=== PATIENT | male | born 1945 | race Caucasian/White ===

== ENCOUNTER → 2018-01-24 22:48 | Outpatient (CLI) | payer MEDICARE, OTHER, SELFPAY ==
[2018-01-24 23:01] LABS: Absolute Lymphocyte Count 2.41 X10^3/ul (0.83-4.51); Absolute Neutrophil Count 3.2 X10^3/uL (2.0-7.7); Basophil# 0.05 X10^3/uL; Basophil% 0.8 % (0-1); Eosinophil# 0.24 X10^3/uL; Eosinophils% 3.7 % (0-5); Hematocrit 41.1 % (40-54); Hemoglobin 13.5 g/dl (13.0-16.5); Lymphocyte # 2.41 X10^3/ul (4.0); Lymphocyte % 36.8 % (19-41); Mean Corp Hgb Conc 32.8 g/gl (32-36); Mean Corpuscular Hgb 30.9 pg (27.0-32.0); Mean Corpuscular Volume 94.1 fL (80-94); Mean Platelet Vol. 9.7 fl (6.2-12.0); Monocyte# 0.65 X10^3/uL; Monocyte% 9.9 % (0-10); Neutrophil # 3.19 X10^3/uL (2.7-7.7); Neutrophil % 48.6 % (47-70); Platelet Count 272 K/mm3 (150-450); RBC Distribution Width CV 12.7 % (11.6-14.6); RBC Distribution Width SD 43.6 fl (35.1-43.9); Red Blood Count 4.37 M/mm3 (4.6-6.2); White Blood Count 6.6 K/mm3 (4.4-11.0)
[2018-01-24 23:05] LABS: POSITIVE COUNT NO; POSITIVE DIFFERENTIAL NO; POSITIVE MORPHOLOGY NO
[2018-01-24 23:17] LABS: ALB/GLOB Ratio 1.1 RATIO (0.9-2.4); AST(SGOT) 19 U/L (15-37); Alanine Aminotransfer ALT/SGPT 21 U/L (16-61); Albumin, Serum 3.6 g/dL (3.2-5.0); Alkaline Phosphatase 76 U/L (45-117); Anion Gap 7 (5-15); BUN 21 mg/dL (7-18); BUN/Creat Ratio 22.7 RATIO (10-20); Calcium,Total 8.3 mg/dL (8.5-10.1); Chloride 105 mmol/L (98-107); Creatinine, Serum 0.93 mg/dL (0.70-1.30); EST Glomerular Filtration Rate 85 mL/min (>60); Est Glom Filt Rate - Afr Amer 103 mL/min (>60); Globulin 3.2 g/dL (2.2-4.2); Glucose 90 mg/dL (74-106); Potassium 3.2 mmol/L (3.5-5.1); Protein, Total 6.8 g/dL (6.4-8.2); Sodium Level 141 mmol/L (136-145)
== END ==
PROVIDERS: Visit Provider Nurse Practitioner
DX: I10 Essential (primary) hypertension (principal); R35.0 Frequency of micturition; Z12.5 Encounter for screening for malignant neoplasm of prostate
CPT/HCPCS: 80053; 84153; 85025; G0103

== ENCOUNTER → 2018-11-07 18:00 | Outpatient (CLI) | payer MEDICARE, OTHER, SELFPAY ==
[2018-11-07 17:30] VITALS: BMI 25.6
[2018-11-08 01:11] LABS: Absolute Lymphocyte Count 2.46 X10^3/uL (0.83-4.51); Basophil# 0.07 X10^3/uL; Basophil% 1.1 % (0-1); Eosinophil# 0.22 X10^3/uL; Eosinophils% 3.5 % (0-5); Hematocrit 38.9 % (40-54); Hemoglobin 12.8 g/dL (13.0-16.5); Lymphocyte # 2.46 X10^3/ul (4.0); Lymphocyte % 38.7 % (19-41); Mean Corp Hgb Conc 32.9 g/dL (32-36); Mean Corpuscular Hgb 31.3 pg (27.0-32.0); Mean Corpuscular Volume 95.1 fL (80-94); Mean Platelet Vol. 10.2 fl (6.2-12.0); Monocyte% 9.4 % (0-10); NRBC Flagged by Analyzer 0 % (0-5); Neutrophil # 2.99 X10^3/uL (2.7-7.7); Neutrophil % 47.1 % (47-70); Platelet Count 284 K/mm3 (150-450); RBC Distribution Width CV 12.6 % (11.6-14.6); RBC Distribution Width SD 44.3 fl (35.1-43.9); Red Blood Count 4.09 M/mm3 (4.6-6.2); White Blood Count 6.4 K/mm3 (4.4-11.0)
[2018-11-08 01:31] LABS: ALB/GLOB Ratio 1.1 RATIO (0.9-2.4); AST(SGOT) 20 U/L (15-37); Alanine Aminotransfer ALT/SGPT 21 U/L (16-61); Albumin, Serum 3.5 g/dL (3.2-5.0); Alkaline Phosphatase 73 U/L (45-117); Anion Gap 4 (5-15); BUN 17 mg/dL (7-18); BUN/Creat Ratio 17.1 RATIO (10-20); Calcium,Total 8.4 mg/dL (8.5-10.1); Chloride 107 mmol/L (98-107); Cholesterol 145 mg/dL (200); EST Glomerular Filtration Rate 78 mL/min (>60); Est Glom Filt Rate - Afr Amer 94 mL/min (>60); Globulin 3.2 g/dL (2.2-4.2); Glucose 102 mg/dL (74-106); High Density Lipoprotein 55 mg/dL; Potassium 3.4 mmol/L (3.5-5.1); Protein, Total 6.7 g/dL (6.4-8.2); Sodium Level 139 mmol/L (136-145); Triglycerides 64 mg/dL; Very Low Density Lipoprotein 13 mg/dL (5-40)
== END ==
PROVIDERS: Referring Provider Nurse Practitioner; Visit Provider Nurse Practitioner
DX: I10 Essential (primary) hypertension (principal)
CPT/HCPCS: 80053; 80061; 85025

== ENCOUNTER → 2019-12-16 21:19 | Outpatient (CLI) | payer MEDICARE, OTHER, SELFPAY ==
[2019-12-16 17:46] VITALS: BMI 24.3
[2019-12-16 21:38] LABS: Absolute Lymphocyte Count 2.12 X10^3/uL (0.83-4.51); Absolute Neutrophil Count 3.3 X10^3/uL (2.0-7.7); Basophil# 0.06 X10^3/uL; Basophil% 0.9 % (0-1); Eosinophil# 0.21 X10^3/uL; Eosinophils% 3.3 % (0-5); Hematocrit 41.6 % (40-54); Hemoglobin 13.4 g/dL (13.0-16.5); Lymphocyte # 2.12 X10^3/ul (4.0); Lymphocyte % 33.3 % (19-41); Mean Corp Hgb Conc 32.2 g/dL (32-36); Mean Corpuscular Hgb 31.2 pg (27.0-32.0); Mean Platelet Vol. 9.8 fl (6.2-12.0); Monocyte# 0.63 X10^3/uL; Monocyte% 9.9 % (0-10); NRBC Flagged by Analyzer 0 % (0-5); Neutrophil # 3.34 X10^3/uL (2.7-7.7); Neutrophil % 52.4 % (47-70); Platelet Count 298 K/mm3 (150-450); RBC Distribution Width CV 12.2 % (11.6-14.6); RBC Distribution Width SD 43.7 fl (35.1-43.9); Red Blood Count 4.29 M/mm3 (4.6-6.2); White Blood Count 6.4 K/mm3 (4.4-11.0)
[2019-12-16 21:50] LABS: Vitamin B12 405 pg/mL (211-911)
[2019-12-16 21:55] LABS: ALB/GLOB Ratio 1.2 RATIO (0.9-2.4); AST(SGOT) 23 U/L (15-37); Alanine Aminotransfer ALT/SGPT 22 U/L (16-61); Albumin, Serum 3.6 g/dL (3.2-5.0); Alkaline Phosphatase 68 U/L (45-117); Anion Gap 5 (5-15); BUN 14 mg/dL (7-18); BUN/Creat Ratio 13.3 RATIO (10-20); Calcium,Total 8.4 mg/dL (8.5-10.1); Chloride 105 mmol/L (98-107); Cholesterol 153 mg/dL (200); Creatinine, Serum 1.05 mg/dL (0.70-1.30); EST Glomerular Filtration Rate 73 mL/min (>60); Est Glom Filt Rate - Afr Amer 88 mL/min (>60); Glucose 81 mg/dL (74-106); High Density Lipoprotein 48 mg/dL; PSA,Total - Annual Screen 3.62 ng/mL (0.00-4.00); Potassium 3.6 mmol/L (3.5-5.1); Protein, Total 6.6 g/dL (6.4-8.2); Sodium Level 140 mmol/L (136-145); Triglycerides 98 mg/dL; Very Low Density Lipoprotein 20 mg/dL (5-40)
== END ==
PROVIDERS: Referring Provider Nurse Practitioner; Visit Provider Nurse Practitioner
DX: I10 Essential (primary) hypertension (principal); D51.9 Vitamin B12 deficiency anemia, unspecified; L29.9 Pruritus, unspecified; R97.20 Elevated prostate specific antigen [PSA]; Z12.5 Encounter for screening for malignant neoplasm of prostate
CPT/HCPCS: 80053; 80061; 82607; 84153; 85025; G0103

== ENCOUNTER → 2021-11-15 | Outpatient (CLI) | payer MEDICARE, OTHER, SELFPAY ==
[2021-11-15 22:24] LABS: Absolute Lymphocyte Count 2.25 X10^3/uL (0.83-4.51); Absolute Neutrophil Count 5.4 X10^3/uL (2.0-7.7); Basophil# 0.05 X10^3/uL; Basophil% 0.6 % (0-1); Eosinophil# 0.08 X10^3/uL; Eosinophils% 0.9 % (0-5); Hematocrit 39.9 % (40-54); Hemoglobin 13.3 g/dL (13.0-16.5); Lymphocyte # 2.25 X10^3/ul (0.83-4.51); Lymphocyte % 26.1 % (19-41); Mean Corp Hgb Conc 33.3 g/dL (32-36); Mean Corpuscular Hgb 30.9 pg (27.0-32.0); Mean Corpuscular Volume 92.6 fL (80-94); Mean Platelet Vol. 9.8 fl (6.2-12.0); Monocyte# 0.81 X10^3/uL; Monocyte% 9.4 % (0-10); NRBC Flagged by Analyzer 0 % (0-5); Neutrophil # 5.42 X10^3/uL (2.7-7.7); Neutrophil % 62.8 % (47-70); Platelet Count 297 K/mm3 (150-450); RBC Distribution Width CV 12.3 % (11.6-14.6); RBC Distribution Width SD 41.8 fl (35.1-43.9); Red Blood Count 4.31 M/mm3 (4.6-6.2); White Blood Count 8.6 K/mm3 (4.4-11.0)
[2021-11-15 22:39] LABS: ALB/GLOB Ratio 1.2 RATIO (0.9-2.4); AST(SGOT) 22 U/L (15-37); Alanine Aminotransfer ALT/SGPT 22 U/L (16-61); Albumin, Serum 3.6 g/dL (3.2-5.0); Alkaline Phosphatase 70 U/L (45-117); Anion Gap 9 (5-15); BUN 17 mg/dL (7-18); BUN/Creat Ratio 15.7 RATIO (10-20); CRP, High Sensitivity Cardiac 0.89 mg/L; Calcium,Total 8.6 mg/dL (8.5-10.1); Chloride 97 mmol/L (98-107); Creatinine, Serum 1.08 mg/dL (0.70-1.30); EST Glomerular Filtration Rate 70 mL/min (>60); Est Glom Filt Rate - Afr Amer 85 mL/min (>60); Glucose 87 mg/dL (74-106); PSA,Total - Annual Screen 7.84 ng/mL (0.00-4.00); Potassium 3.6 mmol/L (3.5-5.1); Protein, Total 6.6 g/dL (6.4-8.2); Sodium Level 134 mmol/L (136-145)
[2021-11-16 11:53] LABS: Troponin-I HS 7 pg/mL (3.0-78.0)
== END | disposition home or self-care (01) ==
PROVIDERS: Visit Provider Nurse Practitioner
DX: R07.89 Other chest pain (principal); I10 Essential (primary) hypertension; R35.0 Frequency of micturition; K30 Functional dyspepsia; Z12.5 Encounter for screening for malignant neoplasm of prostate
CPT/HCPCS: 80053; 84153; 84484; 85025; 86141; G0103

== ENCOUNTER → 2021-12-08 | Outpatient (CLI) | payer MEDICARE, OTHER, SELFPAY ==
--- NOTE | 2021-12-08 11:00 | PET_ITS ---
PROCEDURE: WHOLE BODY PET/CT (PMSA) SCAN, MID SKULL TO MID THIGH REASON FOR EXAM: Increasing PSA following radical prostatectomy COMPARISON EXAMINATION: None. TECHNIQUE: Following the intravenous administration of 9.28 mCi of F-18 pylarify, multiplanar imaging acquisitions of the neck, chest, abdomen/pelvis to the mid thigh, obtained at 1 hour post radiopharmaceutical administration. Interpretation is with co-registeration of similar anatomic distribution of CT. Findings: Normal and physiologic distribution of radioisotope identified in the expected intensity of the hepatic and splenic parenchyma, urinary tract and gastrointestinal structures. There is gross anatomic distribution of the intracranial contents. Normal salivary gland activity. INDEX LESION SIZE SUV INTERPRETATION: 1. The left hemipelvis, rounded nodule on the left side of the pelvis on image 72 of series 202 measures 1.8 x 1.3 cm with soft tissue reticular density extending posteriorly. There is associated abnormal isotope activity (SUV 6.9). In the lower right hemipelvis, there is a focal soft tissue nodule measuring 1.7 x 1.4 cm also with isotope activity (SUV 7.8). CT portion of the exam: The lungs are normal. There is no demonstrated pleural abnormality. Normal heart and pericardium. There are calcifications of the coronary arteries. Normal mediastinum. Normal hilar regions. Normal unenhanced pulmonary arteries. Normal aorta arch and descending thoracic aorta. There are several hypodense lesions scattered throughout the liver measuring up to 2.5 cm, none of which demonstrate abnormal isotope activity. Normal gallbladder and extrahepatic biliary system. There are multiple benign calcified granulomata of the spleen. Normal pancreas. Normal bilateral adrenal glands. Normal right kidney. Normal left kidney. Normal visualized stomach. Normal small intestine. Normal colon. The appendix is visualized and appears normal. Normal abdominal aorta. Normal inferior vena cava. Normal urinary bladder. Prostatectomy. Small left inguinal hernia. No destructive bony process. Fusion hardware of the lumbar spine. PET/PET/CT Tumor Base -Thigh Subs IMPRESSION: 1. ABNORMAL EXAMINATION. Bilateral pelvic nodule/adenopathy with abnormal isotope activity meeting criteria for viable neoplasm/prostatic metastasis. 2. Multiple hypodense hepatic masses WITHOUT abnormal PMSA activity, suspicious for HEPATIC METASTASIS, unknown etiology. Recommend hepatic protocol MRI and/or tissue sampling/biopsy. 3. Chronic changes, as detailed above. Electronically Signed: Rajnedra Garnica MD ([place]) at 15:31 EDT Reading Location ID and State: [id number] , Service support ,
== END | disposition home or self-care (01) ==
LOC: ONC 10:51
PROVIDERS: PCP Nurse Practitioner; Referring Provider Urology; Visit Provider Urology
DX: C61 Malignant neoplasm of prostate (principal)
CPT/HCPCS: 78815; A9595

== ENCOUNTER → 2021-12-10 | Outpatient (CLI) | payer MEDICARE, OTHER, SELFPAY ==
--- NOTE | 2021-12-10 08:16 | NM_ITS ---
CLINICAL: 76-year-old male with history of prostate carcinoma. WHOLE BODY 99m Tc MDP RADIONUCLIDE BONE SCINTIGRAPHY COMPARISON: Whole body bone scintigraphy report 11/08/2010 FINDINGS: Following the intravenous administration of 24.7 mCi of 99m Tc MDP, whole body bone images reveal: 1. Increased radiopharmaceutical concentration is defined in the midlower cervical spine posteriorly on the left, the first-third lumbar vertebra posteriorly on the left and right, the left and right posterior sacrum, the acromioclavicular and sternoclavicular compartments of both shoulders, the visualized left and right wrist, the knees bilaterally. 2. The remaining skeletal structures are scintigraphically unremarkable with normal-appearing renal images and urinary bladder activity identified. NM/Bone Scan Whole Body IMPRESSION: 1. The increase in radiotracer concentration defined in the cervical and lumbar spine, the sacrum, the bilateral shoulders, the visualized left and right wrist and knees bilaterally is commensurate with degenerative arthrosis. 2. Compared to the previous whole body bone scintigraphy report dated 11/08/2010, there is no current scintigraphic evidence of diffuse axial skeletal metastatic disease. Electronically Signed: Ranjeet Champagne, at 10:09 EDT ,
== END | disposition home or self-care (01) ==
LOC: NM 08:14
PROVIDERS: PCP Nurse Practitioner; Visit Provider Urology
DX: C61 Malignant neoplasm of prostate (principal)
CPT/HCPCS: 78306; A9503

== ENCOUNTER → 2021-12-23 | Outpatient (CLI) | payer MEDICARE, OTHER, SELFPAY ==
--- NOTE | 2021-12-23 16:20 | MRI_ITS ---
STUDY: MRI ABDOMEN WITH AND WITHOUT CONTRAST REASON FOR EXAM: Male, 76 years old. MALIGNANT NEOPLASM OF PROSTATE. -- SPECIFICALLY ORDERED BY DR. HANNA ATTENTION TO LIVER TECHNIQUE: Standardized fat and water weighted pulse sequences were obtained in all 3 orthogonal planes post contrast administration. IV 13mL CLARISCAN was administered for the contrast portion of the examination. COMPARISON: None. FINDINGS: The visualized lung bases are unremarkable. The visualized portions of the heart are within normal limits. Innumerable T1 hypointense/T2 hyperintense lesions throughout the liver, for example a 3.2 cm mass in the right hepatic lobe. The lesions demonstrate delayed central enhancement. Normal gallbladder and extrahepatic biliary system. Normal spleen. Normal pancreas. Normal bilateral adrenal glands. Normal right kidney. Normal left kidney. Normal visualized stomach. Normal small intestine. Normal colon. There is diffuse atherosclerotic calcification of the abdominal aorta with elongation and tortuosity. Normal inferior vena cava. Normal retroperitoneum. Normal abdominal wall. There are diffuse degenerative changes of the visualized lumbar spine. MRI/MRI Abd WITH and W/O Contrast IMPRESSION: Diffuse hepatic metastases from unknown primary, possibly prostate. Consider ultrasound guided percutaneous biopsy. Electronically Signed: Tomy Vaca MD at 17:39 EDT ,
[2021-12-23 16:25] LABS: CREATININE FINGERSTICK < 0.9 mg/dL (0.70-1.30); EGFR FINGERSTICK > 60.0000 mL/min (>60)
== END | disposition home or self-care (01) ==
LOC: MRI 15:41
PROVIDERS: PCP Nurse Practitioner; Visit Provider Urology
DX: C61 Malignant neoplasm of prostate (principal)
CPT/HCPCS: 74183; A9575

== ENCOUNTER 2022-01-04 08:32 | Outpatient (CLI) | payer MEDICARE, OTHER, SELFPAY ==
[2022-01-04] VITALS (11 sets, daily range): BP systolic 113–169; BP diastolic 61–100; PULSE 53–75; RESP 14–21; TEMP 36.9; O2SAT 94–98; BMI 21.2
[2022-01-04 08:48] LABS: Platelet Count 288 K/mm3 (150-450)
[2022-01-04 09:06] LABS: International Normalized Ratio 1.1; Prothrombin Time (Protime)PT. 14.4 SECONDS (11.7-14.9)
[2022-01-04 09:07] LABS: Partial Thromboplast Time 28.1 Seconds (24.1-36.2)
[2022-01-04] MEDS: Midazolam 2 MG/2 ML Syringe IV (10:00)
--- NOTE | 2022-01-04 10:00 | ASPIGT_PTH ---
PATIENT: NELLIE ASHLEY LOC: CT U#:[id number] AGE/SX: 76/M ROOM: RE01/04/[address]: Dr. Rai Lopez MD : 1945 BED: DIS: 01/04/2022 SPEC #: [id number] RECD: 01/04/22 10:30 STATUS: JORDAN REDanny #: [id number] LOUISE: 01/04/22 10:[address]: Rai Lopez DEPT: SURGICAL PATHOLOGY RECD BY: Bharti Soto ENTERED: 01/04/22 12:05 SP TYPE: ASP RAD OTHR DR: Prema Banks, DIRECTOR MATERNAL CHILD-C Tissues: Liver, NOS Procedures: FNA Specimen Adequacy Special Stain Group II Surgery Specimen Level V Imprint (control) HEADER OPERATION: CT-guided liver biopsy PRE-OP DIAGNOSIS: Malignant neoplasm of prostate TISSUE SUBMITTED: Liver 18-gauge x7 MICROSCOPIC DIAGNOSIS Liver, CT-guided core biopsy: Liver parenchymal tissue, negative for malignancy. See comment. SHAZIA:sarah 01/05/2022 COMMENT The specimen is evaluated at the time of biopsy by Dr. Hernandez. Immediate Evaluation: Set 1 - Negative for malignant cells (2 imprints). Set 2 - Negative for malignant cells (4 imprints). Correlation with clinical, radiologic findings and appropriate follow up are necessary. As per EMR, the patient has history of prostate cancer diagnosis in 2010, status post prostatectomy. Case has been reviewed in consultation with Dr. Nick who concurs with the above diagnosis. IDC:AM MICROSCOPIC DESCRIPTION Slides are reviewed. GROSS DESCRIPTION Received in fixative is one container labeled with the patient's name and designated liver. The specimen consists of multiple irregular fragments of [place] soft tissue that in aggregate measure 1.5 x 0.5 x 0.1 cm. The entire specimen is submitted in one cassette. Six touch imprints are prepared at the time of core biopsy. / SHAIZA:sarah 01/04/2022 TC:4 CPT: 50166, 47723, 60982
--- NOTE | 2022-01-04 10:00 | CT_ITS ---
PROCEDURE: CT DIRECTED CORE LIVER BIOPSY INDICATION: Male, 76 years old. PROSTATE MALIGNANT NEOPLASM PHYSICIAN: Dr. VARGAS Jordan CONSENT: Written informed consent was obtained having explained the risks, benefits and alternatives in detail with the patient who accepted the risks and agreed to proceed. Laboratory review and clinical assessment was performed. CONSCIOUS SEDATION PROTOCOL: The Drugs used were: 2 mg Versed, IV., and 50 mcg Fentanyl, IV. The sedation time was: 23 minutes. Conscious sedation was started at 10:00 AM and terminated at 10:23 AM. The conscious sedation protocol was independently monitored. RADIATION DOSAGE (If Supplied By Facility): CTDIvol = ( 15 ) mGy, DLP = ( 251.56 ) mGycm Individualized dose optimization techniques were used for this CT. TECHNIQUE: Using CT image guidance with image documentation, a suitable location in the left lobe of the liver was identified. Using an anterior approach, puncture of the liver was uneventful with an 18-gauge core needle system. 7, 18-gauge core samples were obtained, and submitted in formalin to the pathologist for further assessment. Followup CT scan revealed no distinct sequelae. CT/Biopsy/Inj or Needle Placement IMPRESSION: 1. CT directed core needle biopsy of the liver, using CT image guidance with image documentation as described. 2. Conscious Sedation protocol utilized with independent monitoring. Electronically Signed: Chintan Franks MD at 10:46 EDT ,
[2022-01-04] MEDS: fentaNYL 100 MCG/2 ML Ampul IV (10:03)
[2022-01-04] MEDS: Lidocaine 2% (20 ml mdv) 20 ML Vial INFILT (10:12)
== END 2022-01-04 23:59 | disposition home or self-care (01) ==
LOC: CT 08:35
PROVIDERS: PCP Nurse Practitioner; Referring Provider Urology; Visit Provider Urology
DX: C61 Malignant neoplasm of prostate (principal); C79.89 Secondary malignant neoplasm of other specified sites
CPT/HCPCS: 47000; 36415; 77012; 85049; 85610; 85730; 88172; 88305; 88307; 88313; 99156; J7050; A4216

== ENCOUNTER → 2022-01-14 | Outpatient (CLI) | payer MEDICARE, OTHER, SELFPAY ==
[2022-01-14] VITALS (10 sets, daily range): BP systolic 109–165; BP diastolic 55–96; PULSE 55–90; RESP 11–21; TEMP 36.6; O2SAT 94–99; BMI 22.0
--- NOTE | 2022-01-14 | IMM_PTH ---
PATIENT: NELLIE ASHLEY LOC: CT U#:[id number] AGE/SX: 76/M ROOM: RE01/14/[address]: Dr. Rai Lopez MD : 1945 BED: DIS: 01/14/2022 SPEC #: [id number] RECD: 01/18/22 09:24 STATUS: JORDAN REQ #: [id number] LOUISE: 01/14/22 00:[address]: Rai Lopez DEPT: IMMUNOHISTOCHEMISTRY RECD BY: Montse Staples ENTERED: 01/18/22 09:26 SP TYPE: IMMUNO OTHR DR: Prema Banks, JEWELRY SETTER-C Tissues: Liver, NOS Procedures: Synapto (add) RCC (add) NAPSIN A (add) CD56 (add) CEA (add) CHROMO (add) CK20 (add) CK5-6 (add) CK7 (add) CK8 (add) KI-67 (add) TTF1 (add) Vimentin (add) 34BE12 (add) Pankeratin (initial) P40 (add) PSAP (add) NSE (add) S-100 (add) PHYSICIAN & INSTITUTION [place] [id number] SPECIMEN INFORMATION: Tissue Source: Liver mass Clinical Info: Liver mass Specimen Number: [id number] CPT code: 48942, 96329 x18 METHODOLOGY: Deparaffinized sections of prefer/formalin-fixed tissue or PAP/DQ stained slides are incubated with monoclonal/polyclonal antibodies/oligonucleotide probes. Localization is made via biotin free immunoperoxidase method. Appropriate controls are performed and reacted as expected. Results on target cell population are indicated in the following table: RESULTS: ANTIBODY / CLONE RESULT AE1-3 (AE1/AE3/PCK26) negative CK7 (OV-TL12/30) negative CK8 (52orukK09) positive CK20 (KS20.8) positive, focal Vimentin (V9) negative 34BE12 (34BE12) negative CD56 (123C3.D5) positive Chromo (LK2H10) positive Synapto (polyclonal) positive NSE Neuron Specific Enolase positive TTF-1 (8G7G3/1) positive Napsin A (Rabbit Polyclonal) positive, dim CK5-6 (D5 & 1684) negative P40 (BC28) negative Ki-67 (30-9) positive, >95% PSAP (PASE/4LJ) negative RCC (PN-15) negative S-100 (4C4.9) negative CEA (11-7/TF-3HB-1) positive These tests were developed and their performance characteristics determined by [facility]. They may not have been cleared or approved by the U.S. Food and Drug Administration. The FDA has determined that such clearance or approval is not necessary. The above immunohistochemical/dualISH markers are ordered and reviewed by the Pathologist. INTERPRETATION: Liver mass, CT-guided core biopsy: Consistent with metastatic small cell carcinoma. See comment. AM:sarah 01/19/2022 Comment: The IHC profile favors a lung primary.
--- NOTE | 2022-01-14 08:57 | CT_ITS ---
PROCEDURE: CT DIRECTED CORE LIVER BIOPSY INDICATION: Male, 76 years old. HX OF PROSTATE CA PHYSICIAN: Dr. VARGAS Jordan CONSENT: Written informed consent was obtained having explained the risks, benefits and alternatives in detail with the patient who accepted the risks and agreed to proceed. Laboratory review and clinical assessment was performed. CONSCIOUS SEDATION PROTOCOL: The Drugs used were: 2 mg Versed, IV., and 75 mcg Fentanyl, IV. The sedation time was: 20 minutes. Conscious sedation was started at 10:08 AM and terminated at 10:28 AM. The conscious sedation protocol was independently monitored. RADIATION DOSAGE (If Supplied By Facility): CTDIvol = ( 15 ) mGy, DLP = ( 252.9 ) mGycm Individualized dose optimization techniques were used for this CT. TECHNIQUE: Using CT image guidance with image documentation, a suitable location in the right lobe of the liver was identified. Using an anterior approach, puncture of the liver was uneventful with an 18-gauge core needle system. 4, 18-gauge core samples were obtained, and submitted in formalin to the pathologist for further assessment. Followup CT scan revealed no distinct sequelae. CT/Biopsy/Inj or Needle Placement IMPRESSION: 1. CT directed core needle biopsy of the liver, using CT image guidance with image documentation as described. 2. Conscious Sedation protocol utilized with independent monitoring. Electronically Signed: Chintan Franks MD at 10:51 EDT ,
[2022-01-14] MEDS: Midazolam 2 MG/2 ML Syringe IV (10:08)
[2022-01-14] MEDS: fentaNYL 100 MCG/2 ML Ampul IV ×2 (10:10→10:17)
[2022-01-14] MEDS: Lidocaine 2% (20 ml mdv) 20 ML Vial (10:20)
--- NOTE | 2022-01-14 10:30 | ASPIGT_PTH ---
PATIENT: NELLIE ASHLEY LOC: CT U#:[id number] AGE/SX: 76/M ROOM: RE01/14/[address]: Dr. Rai Lopez MD : 1945 BED: DIS: 01/14/2022 SPEC #: [id number] RECD: 01/14/22 11:05 STATUS: JORDAN REDanny #: [id number] LOUISE: 01/14/22 10:[address]: Rai Lopez DEPT: SURGICAL PATHOLOGY RECD BY: Bharti Soto ENTERED: 01/14/22 11:07 SP TYPE: ASP RAD OTHR DR: Prema Banks, MULTIPLE TUBE WINDING MACHINE OPERATOR-C Tissues: Liver, NOS Procedures: FNA Specimen Adequacy Special Stain Group II Surgery Specimen Level V Imprint (control) HEADER OPERATION: Liver biopsy PRE-OP DIAGNOSIS: Liver mass TISSUE SUBMITTED: Liver 18-gauge x4 cores MICROSCOPIC DIAGNOSIS Liver mass, CT-guided core biopsy: Positive for malignant cells consistent with 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 See comment. AM:sarah 01/17/2022 COMMENT The specimen is evaluated at the time of biopsy by Dr. Nick. Immediate Evaluation = Positive for malignant cells consistent with carcinoma. Immunohistochemistry ([id number]) supports the above diagnosis. MICROSCOPIC DESCRIPTION Slides are reviewed. GROSS DESCRIPTION Received is one container labeled with the patient's name and not further designated. The specimen consists of multiple cores of light [place] soft tissue that in aggregate measure 1.8 x 0.5 x <0.1 cm. The specimen is totally submitted in one cassette. / AM:sarah 01/14/2022 TC:0 CPT: 25370, 06115
== END | disposition home or self-care (01) ==
LOC: CT 08:56
PROVIDERS: PCP Nurse Practitioner; Referring Provider Urology; Visit Provider Urology
DX: R16.0 Hepatomegaly, not elsewhere classified (principal); C79.89 Secondary malignant neoplasm of other specified sites; C61 Malignant neoplasm of prostate; R97.21 Rising PSA following treatment for malignant neoplasm of prostate
CPT/HCPCS: 47000; 77012; 88172; 88305; 88307; 88313; 88341; 88342; 99156; J7050; Q9967; A4216

== ENCOUNTER → 2022-01-27 | Outpatient (CLI) | payer MEDICARE, OTHER, SELFPAY ==
--- NOTE | 2022-01-27 07:32 | CT_ITS ---
STUDY: CT CHEST T ABDOMEN WITH CONTRAST REASON FOR EXAM: Male, 76 years old. METS SCLC UNKNOWN PRIMARY SUSPECT LUNG IV CONTRAST RADIATION DOSAGE (If Supplied By Facility): CTDIvol = ( 12.19 ) mGy, DLP = ( 734.10 ) mGycm TECHNIQUE: Transaxial imaging was performed following intravenous administration of IV 100mL Isovue-300. Multiplanar coronal and sagittal images were reformatted. Individualized dose optimization techniques were used for this CT. COMPARISON: No relevant priors. FINDINGS: CHEST Small benign-appearing bilateral axillary lymph nodes. The lungs are normal. There is no demonstrated pleural abnormality. There are calcifications of the coronary arteries. Normal mediastinum. Normal hilar regions. Normal unenhanced pulmonary arteries. There is atherosclerotic calcification of the aortic arch. Subchondral sclerosis at the T12-L1 level. ABDOMEN Multiple hypodense nodules scattered throughout both lobes of the liver. This is in keeping with diffuse metastatic deposits. Hepatomegaly. Small amount of the perihepatic fluid along its inferior margin. Normal gallbladder and extrahepatic biliary system. There are multiple benign calcified granulomata of the spleen. Normal pancreas. Normal bilateral adrenal glands. Normal right kidney. Normal left kidney. Large amount of residual food particles seen in the stomach. Normal small intestine. Normal colon. The appendix is visualized and appears normal. There is scattered atherosclerotic calcification of the abdominal aorta, without a demonstrated aneurysm. Normal inferior vena cava. Normal retroperitoneum. There is a small umbilical hernia containing fat. There are diffuse degenerative changes of the visualized lumbar spine. Prior laminectomy and fusion at the L3-L4 and L4-L5 levels. Subchondral sclerosis at the T12-L1 and L1-L2 levels. CT/CT Chest AND Abd W/ Contrast IMPRESSION: Hepatomegaly and diffuse hepatic metastasis. Small amount of fluid is seen in the perihepatic space along its inferior margin. Electronically Signed: Chintan Franks MD at 9:27 EST ,
== END | disposition home or self-care (01) ==
LOC: CT 07:32
PROVIDERS: PCP Nurse Practitioner; Visit Provider Internal Medicine Hematology & Oncology
DX: C34.90 Malignant neoplasm of unspecified part of unspecified bronchus or lung (principal)
CPT/HCPCS: 71260; 74160; Q9967

== ENCOUNTER 2022-02-01 05:50 | Day surgery (SDC) | payer MEDICARE, OTHER, SELFPAY ==
[2022-02-01] VITALS (7 sets, daily range): BP systolic 124–188; BP diastolic 81–91; PULSE 52–58; RESP 16–19; TEMP 36.3–36.6; O2SAT 97–99; BMI 22.9
[2022-02-01] MEDS: Lactated Ringers 1,000 ML 15 ML IV (06:35)
--- NOTE | 2022-02-01 07:12 | PCM.HP.BLA ---
History and Physical Date of Admission: 02/01/22 Date of Service:? 01/26/22 MR#: [id number] Acct: [id number] Name:? NELLIE NATHAN Rep #: [id number] : 1945 ? ? Provider: Dr. Mihai Grady MD Age/Sex:? 76/M ? ? Location: [facility] Status: Signed Intake Vital Signs ? 01/26/2209:19 Height 5 ft 8 in Weight: 151 lb BMI 22.9 BP 159/82 H Blood Pressure Location Rt brachial Position Sitting Respiration 17 Pulse 65 Pulse Source Monitor Temp 97.5 F L Temp Source Temporal Pulse Oximetry (%) 96 Oxygen Delivery Method room air Intake Visit Reasons:?PORT PLACEMENT Chief Complaint: Port Placement Agronomy Location Manager Required: No Is patient in pain?: No Allergies naproxen [From Aleve] Adverse Reaction (Verified 01/26/22 09:21) Itching Medications meclizine 12.5 mg tablet 12.5 mg PO BID-TID PRN dizziness #60 tabs 07/19/21 [Rx Confirmed 01/26/22] lisinopril 20 mg-hydrochlorothiazide 12.5 mg tablet 1 tab PO DAILY #90 tabs 11/15/21 [Rx Confirmed 01/26/22] zolpidem 10 mg tablet 10 mg PO .every night #30 tabs 11/25/21 [Rx Confirmed 01/26/22] aspirin 81 mg tablet,delayed release (Adult Aspirin Regimen) 81 mg PO DAILY 12/29/21 [History Confirmed 01/26/22] pantoprazole 40 mg tablet,delayed release (Protonix) 40 mg PO BID #60 tabs 01/03/22 [Rx Confirmed 01/26/22] cholecalciferol (vitamin D3) 10 mcg (400 unit) tablet (Vitamin D3) 10 mcg PO DAILY 01/24/22 [History Confirmed 01/26/22] calcium carbonate 600 mg calcium (1,500 mg) tablet (Calcium) 800 mg PO DAILY 01/26/22 [History Confirmed 01/26/22] PFSH Medical History? Abnormal EKG Anxiety Erectile dysfunction Hypertension Insomnia Micturition painful Nocturia Poor urinary stream Prostate cancer Right bundle branch block Small cell lung cancer Stress incontinence TIA (transient ischemic attack) Surgical History? H/O back surgery H/O knee surgery History of prostatectomy Hx of hernia repair Family History? Mother?? ,? at age 82 from? a stroke CVA (cerebral vascular accident)Father CancerSister CancerOther Hypertension Social History? Smoking Status:? Former smoker Tobacco: How many years used:? 15 alcohol intake:? current alcohol intake frequency: a few times a month details:? social drinker substance use type:? does not use caffeine:? Yes (2/day) HPI HPI HPI: Patient is a 76-year-old male who presents for consideration of port placement.? He is referred from Dr. De Souza.? Patient was diagnosed with small cell lung cancer on 01/14/2022 after core needle biopsy of his liver for a suspicious lesion noted on PET imaging.? He had been under surveillance for a diagnosis of prostate cancer treated with prostatectomy 10 years earlier and was found to have a rising PSA with pelvic lymphadenopathy.? PET imaging was performed on 12/08/2021 again found liver metastasis of unknown origin leading to the biopsy at the end of December.? They have met with oncology and plans are to begin chemotherapy for palliative purposes, but a date has not been set.? Denies any symptoms of cough or hemoptysis.? He reports a smoking history of approximately 10 years where he smoked 1-1/2 to 2 packs/day.? He reports that he stopped this habit 40 to 50 years ago.? He denies any secondhand exposure. Patient has no prior history of central line placement.? Patient has no pacemaker or intracardiac defibrillator.? Patient has no renal dysfunction and are not on hemodialysis.? He additionally has no history of staph infections. Mr. Nathan is not currently prescribed blood thinners. Patient does have a history of abnormal EKG which was reported as a right bundle branch block.? He notes recent evaluation by Dr. Sutton, a corporate events director in the [place], who performed a battery of stress test and he was assured that there was no signs of ischemia. ROS General General: Yes fatigue; No weight change, appetite, colon cancer, breast cancer or weakness HEENT HEENT: No difficulty swallowing, eye injury, eye surgery, swollen glands or hoarseness Endo Endocrine: No thyroid disease, diabetes mellitus, thyroid cancer, Hair loss, heat intolerance or cold intolerance Skin Skin: No rash or changing moles Musc Musculoskeletal: Yes back problems; No arthritis, rheumatoid arthritis, gout or joint pain Cardio Cardiovascular: Yes high blood pressure; No murmur, pacemaker, heart disease, atrial fibrillation, heart attack, heart stent, palpitations, shortness of breat with exertion or chest pain Psych Psychiatric: No depression, anxiety or hearing voices Resp Respiratory: No shortness of breath, No sleep apnea, No cough, No COPD, No asthma, No emphysema and No wheezing Gastro Gastrointestinal: No abdominal pain, Yes nausea or vomiting, No diarrhea, No constipation, No blood in stool, Yes acid reflux, Yes hemorrhoids, No ulcers, No gallbladder problem and No black,tarry stools Daryn Hematologic: No blood thinners, No blood disorders, No bleeding, No anemia and No blood clots Additional Details: Baby ASA Neuro Neurologic: No system reviewed and no additional complaints, except as documented, No as per HPI, No abnormal gait, No abnormal hearing, No abnormal movements, No abnormal speech, No behavioral changes, No burning sensations, No confusion, No convulsions, No disequilibrium, No dizziness, No localized weakness, No frequent falls, No headache(s), No lack of coordination, No loss of vision, No memory loss, No numbness, No other visual disturbances, No radicular pain, No restless legs, No sensory deficit, No syncope, No tingling, No tremor(s), No weakness and No other Exam Const General: cooperative and anxious Orientation: alert, awake and oriented x3 Chest Other: Patient is thin with minimal soft tissue coverage over his thoracic cavity.? There are no signs of infections or skin breaks. Resp Effort & Inspection: normal respiratory effort and no cough Auscultation: no rales, no rhonchi and no wheezes Cardio Rate: regular rate Rhythm: regular rhythm Assessment and Plan Assessment and Plan (1) Small cell lung cancer: ?Status:?Acute ?Comment: This is a 76-year-old male who is diagnosed with metastatic small cell lung cancer that was found incidentally during a work-up for recurrent prostate cancer.? He is referred for evaluation of possible port placement to begin palliative chemotherapy.? A formal date for this therapy initiation has not yet been set.? He has no prior history of central line placement or renal dysfunction.? Therefore I would like to plan for a Port-A-Cath placement under ultrasound guidance next week to not delay these plans for chemotherapy.? The procedure was described in detail as well as recommendations for trying to prevent a central line associated bacterial infection.? Patient and his were appreciative of this information and are eager to be underway with the procedure. ?Plan: Ultrasound-guided right versus left Port-A-Cath placement under local MAC to be scheduled for next week Coding Level of Care Code Off vis,new,level 4 Diagnoses Small cell lung cancer? C34.90 01/26/22 1412 <Electronically signed by Mihai Grady MD> Date Mihai Grady MD
[2022-02-01] MEDS: Cefazolin 2 GM in 0.9% Normal Saline 100 ML IV (07:32)
[2022-02-01] MEDS: Bupivacaine 0.25% 30 ML Vial (08:00)
[2022-02-01] MEDS: Lidocaine 1% (30 ml sdv) 30 ML Vial (08:00)
--- NOTE | 2022-02-01 08:04 | RAD_ITS ---
STUDY: X-RAY CHEST REASON FOR EXAM: Male, 76 years old. Port -- pacu TECHNIQUE: Single AP portable view of the chest. COMPARISON: None. FINDINGS: A right-sided portacatheter is in place with the tip at the junction of the superior vena cava and right atrium. The lungs are clear and expanded. There is no demonstrated pleural abnormality. Normal size heart. Normal mediastinum and misha. Normal visualized pulmonary arteries. There is atherosclerotic calcification of the aortic arch with tortuosity. There are diffuse degenerative changes of the visualized thoracic spine. Normal visualized ribs, clavicles, and shoulders. There is no demonstrated abnormality of the visualized soft tissue structures of the upper abdomen. RAD/CXR for Line Placement IMPRESSION: The tip of the right-sided uli catheter is at the junction of the superior vena cava and right atrium. Electronically Signed: Chintan Franks MD at 8:46 EST ,
--- NOTE | 2022-02-01 08:05 | PCM.OPRPT ---
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 Placement of right IJ Port-A-Cath, 2. Use of fluoroscopy 3. Use of fluoroscopy. Surgeon: Claire Vinson Type of Anesthesia: Local MAC Anesthesiologist: Espinoza Chino Special Medications: Ancef 2 g IV x1 Estimated Blood Loss (mL): < 10 cc Description of Procedure: After informed consent was given, the patient was brought to the operating room and placed in the supine position. Appropriate time out protocol was followed. Patient was then given IV conscious sedation for anesthesia. The patient's right upper chest and neck were then prepped with a surgical skin preparation and sterile surgical drapes were placed. After proper landmarks were ascertained, the skin at the upper right chest area was then infiltrated with 1:1 mixture of 1% lidocaine and 0.25% marcaine. A needle trocar was then inserted into the right internal jugular vein with ultrasound guidance-multiple vessels were viewed with u/s and the right IJ was chosen-- and there was good aspiration of venous blood. A wire was then threaded into the needle trocar and this was visualized under fluoroscopy to ensure that the wire was in the superior vena cava. Once this was done, then the needle trocar was removed. A small skin tara was made with an 11 blade knife at the wire entrance site. The dilator with the introducer sheath attached was then placed over the wire into the right internal jugular vein via the Seldinger technique and this was visualized under fluoroscopy. The dilator and sheath were in proper position as visualized by fluoroscopy. A subcutaneous pocket was then created caudad to the catheter insertion site. A transverse skin incision was made after the skin and subcutaneous tissues were infiltrated with local anesthetic. Blunt dissection was then used to create a space large enough for placement of the subcutaneous port. The catheter was then tunneled into the subcutaneous pocket. The wire and dilator were then removed. The catheter was then threaded into the introducer sheath and was positioned with its tip at the junction of the superior vena cava and the right atrium as visualized under fluoroscopy. The excess catheter was transected. The catheter was then attached to the subcutaneous port using manufacturers guidelines. The catheter was flushed with a heparin saline mixture prior to placement. Hemostasis was carefully controlled with electrocautery. The port was sutured to the subcutaneous fascia using 2-0 Vicryl suture at two sites. The port was then placed in the subcutaneous pocket. The incision were reapproximated with interrupted subdermal 3-0 vicryl sutures. The skin was reapproximated with 3-0 nylon suture in a interrupted fashion. Steristrips were used for reinforcement of the skin closure at IJ insertion site and a sterile opsite dressings were applied. The patient tolerated the procedure well. Grafts/Implants Used: [employer] PowerPort isp M.R.I. 6Fr Lot [id number] [id number] Complications none
--- NOTE | 2022-02-01 08:08 | EX.PCM.DISCH ---
Discharge Instructions Diet Discharge Diet: Light diet - advance as tolerated Activity Discharge Activity: May Not Drive (while taking narcotic pain medications.) May shower in (days): 1 Lifting Restrictions: no lifting >20 lbs x 2 wks, no strenuous exercise for 4 wks Dressing / Incision Call your doctor if your incision/area has: Continuous Slow Oozing, Sudden Increased Bleeding, Increased Pain/ Swelling, Increased Redness, Foul Smelling Discharge and Swelling at the incision site Call your doctor if you observe: Fever of 101 or Higher Remove Dressing in: 2 days Cleanse incision/area with: Soap & Water Additional Dressing/Incision Instructions:: Steri-Strips will fall off in 7 to 10 days, if they do not fall off okay to remove after 10 days. Follow Up Care Please Follow Up With: Claire Vinson MD When: Call the office for a follow-up appointment 2 weeks; after 5 PM and on the weekends call [phone] with any concerns. Test Results: Test results from this visit will be discussed in further detail at your follow-up appointment, if applicable. Discharge Plan Admission Attending Provider: Claire Vinson Primary Care Provider: Prema Banks NP Discharge Orders/Prescriptions Prescriptions: New oxycodone-acetaminophen 5-325 mg tablet 1 tab PO Q6H PRN (Reason: pain) 3 Days Qty: 5 0RF Continued aspirin [Adult Aspirin Regimen] 81 mg tablet,delayed release (DR/EC) 81 mg PO DAILY pantoprazole [Protonix] 40 mg tablet,delayed release (DR/EC) 40 mg PO BID Qty: 60 3RF Rx Instructions: take two times a day for eight weeks then start once a day. cholecalciferol (vitamin D3) [Vitamin D3] 10 mcg (400 unit) tablet 10 mcg PO DAILY calcium carbonate [Calcium 600] 600 mg calcium (1,500 mg) tablet 800 mg PO DAILY ondansetron 8 mg tablet,disintegrating 8 mg PO Q8H PRN (Reason: nausea and vomiting) Qty: 30 2RF lidocaine-prilocaine 2.5-2.5 % cream 1 applic topical ONCE PRN (Reason: port access) 30 Days Qty: 30 2RF meclizine 12.5 mg tablet 12.5 mg PO BID-TID PRN (Reason: dizziness) Qty: 60 12RF lisinopril-hydrochlorothiazide 20-12.5 mg tablet 1 tab PO DAILY Qty: 90 3RF zolpidem 10 mg tablet 10 mg PO .every night Qty: 30 5RF Referrals / Follow Up: Prema Banks LAY BROTHER, [facility]OTHER-C [Primary Care Provider] - Disposition Disposition (needs filled in before D/C Order can be placed): Home, Self Care
== END 2022-02-01 09:11 | disposition home or self-care (01) ==
LOC: SDC 05:50 → AC 05:51
PROVIDERS: PCP Nurse Practitioner; Referring Provider Surgery; Visit Provider Surgery
PROC: (CPT 36561; principal; 2022-02-01 07:15)
DX: Z45.2 Encounter for adjustment and management of vascular access device (principal); C34.90 Malignant neoplasm of unspecified part of unspecified bronchus or lung; R59.0 Localized enlarged lymph nodes; Z87.891 Personal history of nicotine dependence
CPT/HCPCS: 36561; 00532; 71045; 77001; J7120

== ENCOUNTER → 2022-02-02 | Outpatient (CLI) | payer MEDICARE, OTHER, SELFPAY ==
--- NOTE | 2022-02-02 13:46 | MRI_ITS ---
EXAM: MR HEAD WITHOUT AND WITH INTRAVENOUS CONTRAST CLINICAL INDICATION: METS SCLC UNK PRIMARY SUSPECT LUNG TECHNIQUE: Multiplanar and multisequence MR images of the brain were obtained without and with intravenous contrast. This report was created using Smart [employer] report [employer] technology. CONTRAST: IV Yes YES COMPARISON: None. FINDINGS: BRAIN AND EXTRA-AXIAL SPACES: No intracranial mass, mass effect, or midline shift. No mass or enhancing lesion. No hemorrhage, hydrocephalus, or acute territorial infarct. Areas of T2 signal hyperintensity in the white matter are consistent with moderate microvascular ischemia. Mild cerebral atrophy with widening of the extra-axial spaces and ventricular dilation. Basal cisterns are unremarkable. SELLA: Pituitary gland is normal in height. AUDITORY SYSTEM: Unremarkable. BONES/JOINTS: Unremarkable. SINUSES: Unremarkable as visualized. Clear. MASTOID AIR CELLS: Unremarkable as visualized. Clear. ORBITS: Unremarkable as visualized. VASCULATURE: Normal flow voids in the major intracranial circulation. MRI/Brain W/WO Contrast IMPRESSION: Chronic microvascular ischemic changes. No mass or enhancing lesion. Electronically Signed: Jalyn Cruz MD at 20:48 EST Reading Location ID and State: [id number] / Tel , Service support ,
== END | disposition home or self-care (01) ==
LOC: MRI 13:46
PROVIDERS: PCP Nurse Practitioner; Referring Provider Internal Medicine Hematology & Oncology; Visit Provider Internal Medicine Hematology & Oncology
DX: C34.90 Malignant neoplasm of unspecified part of unspecified bronchus or lung (principal)
CPT/HCPCS: 70553; A9575

== ENCOUNTER → 2022-04-04 | Outpatient (CLI) | payer MEDICARE, OTHER, SELFPAY ==
--- NOTE | 2022-04-04 07:43 | CT_ITS ---
STUDY: CT CHEST, ABDOMEN T PELVIS WITH CONTRAST REASON FOR EXAM: Male, 76 years old. 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 Individualized dose optimization techniques were used for this CT. COMPARISON: Comparison is made with prior study 02/26/2022. FINDINGS: CHEST A right-sided Port-A-Cath is seen with the tip in the superior vena cava. Stable small benign-appearing bilateral axillary lymph nodes. The lungs are normal. There is no demonstrated pleural abnormality. There are calcifications of the coronary arteries. Normal mediastinum. Normal hilar regions. Normal unenhanced pulmonary arteries. There is atherosclerotic calcification of the aortic arch. There are multi-level degenerative changes of the thoracic spine. Calcified splenic granulomas. Multiple hypodense nodules in the liver. ABDOMEN 1 significant, there are multiple hypodense nodules scattered throughout the liver. There has been a marked improvement as compared to prior study. Most of these nodules are presently predominantly cystic in nature. The liver is not enlarged at this time. Normal gallbladder and extrahepatic biliary system. There are multiple benign calcified granulomata of the spleen. Normal pancreas. Normal bilateral adrenal glands. Normal right kidney. Normal left kidney. Normal visualized stomach. Normal small intestine. Normal colon. The appendix is visualized and appears normal. There is scattered atherosclerotic calcification of the abdominal aorta, without a demonstrated aneurysm. Normal inferior vena cava. Normal retroperitoneum. Normal abdominal wall. There are diffuse degenerative changes of the visualized lumbar spine. Prior laminectomy and fusion at the L3-L4 and L4-L5 levels. Subchondral sclerosis at the T12-L1 and L1-L2 levels. PELVIS Normal urinary bladder. The patient is status post prostatectomy. Normal visualized small intestine. Normal visualized colon. There is no pelvic fluid. There is no pelvic lymphadenopathy or mass lesion. Normal visualized pelvic arteries. There is a left inguinal hernia containing fat. CT/CT Chest, Abd, Pel w/Contrast IMPRESSION: Interval decrease in size and number of the previously seen perihepatic metastatic deposits. Changes in the liver are predominantly cystic at this time. The remainder of the examination is essentially unchanged. Electronically Signed: Chintan Franks MD at 9:20 EST ,
[2022-04-04] MEDS: 0.9% Saline Lock 10 ML Syringe IV (08:04)
== END | disposition home or self-care (01) ==
LOC: CT 07:42
PROVIDERS: PCP Nurse Practitioner; Visit Provider Internal Medicine Hematology & Oncology
DX: C61 Malignant neoplasm of prostate (principal); C34.90 Malignant neoplasm of unspecified part of unspecified bronchus or lung; I25.10 Atherosclerotic heart disease of native coronary artery without angina pectoris; K40.90 Unilateral inguinal hernia, without obstruction or gangrene, not specified as recurrent; Q44.6 Cystic disease of liver
CPT/HCPCS: 71260; 74177; Q9967; A4216

== ENCOUNTER → 2022-05-17 | Outpatient (CLI) | payer MEDICARE, OTHER, SELFPAY ==
[2022-05-17 22:08] LABS: Cholesterol 208 mg/dL (200); High Density Lipoprotein 81 mg/dL; Triglycerides 127 mg/dL; Very Low Density Lipoprotein 25 mg/dL (5-40)
== END | disposition home or self-care (01) ==
PROVIDERS: PCP Nurse Practitioner; Visit Provider Nurse Practitioner
DX: R07.89 Other chest pain (principal)
CPT/HCPCS: 80061

== ENCOUNTER → 2022-06-06 | Outpatient (CLI) | payer MEDICARE, OTHER, SELFPAY ==
--- NOTE | 2022-06-06 07:55 | CT_ITS ---
STUDY: CT CHEST T ABDOMEN WITH CONTRAST REASON FOR EXAM: Male, 76 years old. F/U SCLC IV CONTRAST ONLY RADIATION DOSAGE (If Supplied By Facility): CTDIvol = ( 12.29 ) mGy, DLP = ( 954.29 ) mGycm TECHNIQUE: Transaxial imaging was performed following intravenous administration of IV 100mL Isovue-300. Multiplanar coronal and sagittal images were reformatted. Individualized dose optimization techniques were used for this CT. COMPARISON: Comparison is made with prior study dated April 04, 2022. FINDINGS: CHEST A right-sided portacatheter is seen with the tip in the superior vena cava. The lungs are normal. There is no demonstrated pleural abnormality. There are calcifications of the coronary arteries. Normal mediastinum. Normal hilar regions. Normal unenhanced pulmonary arteries. There is atherosclerotic calcification of the aortic arch. There are multi-level degenerative changes of the thoracic spine. Multiple calcified splenic granulomas. Stable hypodense nodules scattered throughout both lobes of the liver. These are not typical cyst and most likely represent metastatic deposits. ABDOMEN Stable multiple hypodense nodules scattered throughout both lobes of the liver. These are predominantly cystic in nature. Normal gallbladder and extrahepatic biliary system. There are multiple benign calcified granulomata of the spleen. Normal pancreas. Normal bilateral adrenal glands. Normal right kidney. Normal left kidney. Normal visualized stomach. Normal small intestine. There are multiple colonic diverticula consistent with diverticulosis. The appendix is visualized and appears normal. Normal abdominal aorta. Normal inferior vena cava. Normal retroperitoneum. Small bilateral inguinal hernias containing fat. There are diffuse degenerative changes of the visualized lumbar spine. Prior fusion at the L3-L4 and L4-L5 levels. CT/CT Chest AND Abd W/ Contrast IMPRESSION: Stable examination. Electronically Signed: Chintan Franks MD at 14:56 EDT ,
== END | disposition home or self-care (01) ==
LOC: CT 07:54
PROVIDERS: PCP Nurse Practitioner; Visit Provider Internal Medicine Hematology & Oncology
DX: C34.90 Malignant neoplasm of unspecified part of unspecified bronchus or lung (principal)
CPT/HCPCS: 71260; 74160; Q9967

== ENCOUNTER 2022-10-06 14:54 | Outpatient (RCR) | payer MEDICARE, OTHER, SELFPAY ==
--- NOTE | 2022-10-07 10:16 | HP.OTEVAL_ITS ---
Patient's Visit Information Visit Information Visit Information: NELLIE ASHLEY is a 77 year old M, referred to Occupational Therapy by Dr. Yash De Souza MD, with a diagnosis of Malignant neoplasm brain, liver, lung prostate. Date of Evaluation: 10/06/22 Occupational Therapist: MARIBEL Mitchell/Virgil, CHT Subjective Subjective: This 77 year old male was seen for OT eval with dx of Malignant neoplasm of unspecified part of unspecified bronchus or lung, prostate, liver and intrahepatic bile duct, Secondary malignant neoplasm of brain Pt arrives with and have concerns with pts safe functional mobility and would like to know what more she can do for pt to allow him to continue with performing ADLs as he is able. states they came for wheeled walker training as she has noticed pts slower gait and increase need of her support with walking. Order is for walker training. ADLs Comments: lives with in one story duplex with 1 stair with rail. has nephew who lives next door- who will watch pt while is shopping tub shower combination - has shower chair with long handle shower head- is using at this time assist with bathing dressing does all cooking/cleaning states she is with pt most of the time. States while in [place] he took off driving in the middle of the night. states this scared her and now pt has had driving license taken. ROM ROM Comments: pt demo BUE ROM WNL Strength Shoulder: right 4/5 left 4/5 Elbow: right 4/5 left 4/5 Architectural Administrative Assistant: right 40# left 40# Strength Comments: pt demo with generalized weakness Quick DASH-Disab of Arm,Shoulder& Hand Quick DASH Score: 47.7250 Goals Goal:: Family will demo understanding of recommended home modification for increase safety and functional mobility by end of 1st session. Rehabilitation General Assessment: pt demo with generalized weakness limiting pts ind. with safe functional mobility. Based on 's report on home set-up: therapist advised extended shower chair, personal alarm and supervision when pt is performing ADLs. demo understanding and agreed to recommendations. OT did call and ask for Wheeled Walker order to be sent to [facility]. Pt will see Physical therapy for walker training. Rehabilitation Potential: Questionable Anticipated Interventions Anticipated Interventions: Education re assistive Equipment, Education re Diagnosis and Caregiver Training Other Interventions: home modification ad. eq. for ADLs and safety Visit Plan TEXT: Thank you for the opportunity to evaluate your patient. For Medicare and Medicare HMO plans, please review the plan of care and approve it. It will need to be FAXED BACK to us at [phone] for Medicare purposes. Please let me know if there are questions or concerns regarding this plan of care. Physician Signature: Date:
== END 2022-10-06 19:00 | disposition home or self-care (01) ==
LOC: OT 14:54
PROVIDERS: PCP Nurse Practitioner; Referring Provider Internal Medicine Hematology & Oncology; Visit Provider Internal Medicine Hematology & Oncology
DX: C61 Malignant neoplasm of prostate (principal); C78.7 Secondary malignant neoplasm of liver and intrahepatic bile duct; C79.31 Secondary malignant neoplasm of brain; C34.90 Malignant neoplasm of unspecified part of unspecified bronchus or lung
CPT/HCPCS: 97166

== ENCOUNTER → 2022-10-13 | Outpatient (CLI) | payer MEDICARE, OTHER, SELFPAY ==
--- NOTE | 2022-10-13 06:54 | CT_ITS ---
EXAM: CT CHEST, ABDOMEN AND PELVIS WITH INTRAVENOUS CONTRAST CLINICAL INDICATION: F/U METS SCLC IV CONTRAST ONLY TECHNIQUE: Helically acquired images were obtained of the chest, abdomen and pelvis with intravenous contrast. This CT exam was performed using one or more of the following dose reduction techniques: automated exposure control, adjustment of the mA and/or kV according to patient size, and/or use of iterative reconstruction technique. CONTRAST: IV 100mL Isovue-300 COMPARISON: CT Chest Abdomen Pelvis dated 06/06/2022 FINDINGS: CHEST: LUNGS AND PLEURAL SPACES: Normal. No mass. No consolidation or edema. No pleural effusion or thickening. No pneumothorax. HEART: Normal. Heart size is normal. No pericardial effusion. MEDIASTINUM: Normal. No mediastinal or hilar adenopathy. Esophagus is unremarkable. No hiatal hernia. THYROID: Normal. No thyroid nodules or calcification. ABDOMEN: LIVER: Has been marked progression of the diffuse metastatic liver disease. Innumerable space-occupying lesions within the liver measuring up to 3.6 cm in maximum diameter. PANCREAS: Normal. No focal cystic or solid mass. SPLEEN: Multiple splenic granulomata again seen. ADRENALS: Normal. No nodules. KIDNEYS AND URETERS: Normal. Normal renal size and position. No hydronephrosis. STOMACH AND BOWEL: Normal. No bowel obstruction or ileus. No focal inflammatory change. PELVIS: APPENDIX: Appendix is visualized and normal in appearance. BLADDER: Normal. REPRODUCTIVE: Surgical changes of prostatectomy. CHEST, ABDOMEN and PELVIS: INTRAPERITONEAL SPACE: Normal. No ascites or other fluid collection. No free air. BONES/JOINTS: Postoperative and degenerative changes of the spine are stable. SOFT TISSUES: Normal. No discrete abdominal or pelvic wall hernia. VASCULATURE: Normal. Aorta is non-dilated. No aortic dissection. No obvious central pulmonary embolism although this study was not performed with the pulmonary embolism protocol. LYMPH NODES: Normal. No enlarged lymph nodes. TUBES, LINES AND DEVICES: Right IJ infusion catheter extends to the cavoatrial junction. CT/CT Chest, Abd, Pel w/Contrast IMPRESSION: Significant progression of the diffuse metastatic liver disease. No other interval change. Electronically Signed: Pipe Seals MD at 16:39 EDT Reading Location ID and State: [facility] / [place] Tel , Service support ,
[2022-10-13] MEDS: 0.9 % NaCl (Sterile) Posiflush 10 mL IV (07:15)
== END | disposition home or self-care (01) ==
LOC: CT 06:54
PROVIDERS: PCP Nurse Practitioner; Referring Provider Internal Medicine Hematology & Oncology; Visit Provider Internal Medicine Hematology & Oncology
DX: C34.90 Malignant neoplasm of unspecified part of unspecified bronchus or lung (principal)
CPT/HCPCS: 71260; 74177; Q9967; A4216

== ENCOUNTER → 2022-10-21 | Outpatient (CLI) | payer MEDICARE, OTHER, SELFPAY ==
--- NOTE | 2022-10-21 14:54 | MRI_ITS ---
STUDY: MRI BRAIN WITH AND WITHOUT CONTRAST REASON FOR EXAM: Male, 77 years old. INCREASED HEADACHES -- BRAIN METS S/P RT SEPTEMBER 2022 TECHNIQUE: Standardized multiplanar fat and water weighted pulse sequences were obtained. IV 14ml Clariscan was administered for the contrast portion of the examination. COMPARISON: September 13, 2022 FINDINGS: Mild atrophy and nonspecific moderate periventricular white matter disease most likely due to chronic small vessel ischemia possibly exaggerated by chemotherapeutic or radiation changes . There are numerous subcentimeter enhancing nodules within the cerebral hemispheres bilaterally. Several of the nodules demonstrate slightly increased signal intensity on T1 possibly representing subacute hemorrhage. Normal bilateral basal ganglia. Tiny enhancing nodule in left thalamus. There is no extra-axial fluid accumulation. Normal flow voids within the major intracranial circulation suggesting patency by spin echo criteria. Normal venous enhancement. Normal sella turcica, pituitary gland, infundibular stalk, optic chiasm and hypothalamus. Normal tectal plate and pineal gland. Normal midbrain, and medulla. Tiny enhancing nodule in the left gene there are rim-enhancing nodules within the cerebellar hemispheres bilaterally. Normal basal cisterns. Normal bilateral temporal bones. Normal bilateral internal auditory canals. No demonstrated orbital abnormality, within the constraints of a routine brain study. Normal visualized paranasal sinuses. Normal calvarium and skull base. Normal visualized soft tissue structures. Normal visualized upper cervical spine. The number and size of the nodules have decreased significantly since previous exam MRI/Brain W/WO Contrast IMPRESSION: Atrophy and periventricular white matter ischemic changes.. Persistent multiple bilateral cerebral, cerebellar and brainstem metastasis which have decreased in both size and number significantly since previous exam. Some of the nodules demonstrate increased signal intensity on unenhanced T1 which may be consistent with tiny foci of subacute hemorrhage Electronically Signed: Onel Nunn MD at 17:46 EDT ,
[2022-10-21] MEDS: 0.9 % NaCl (Sterile) Posiflush 10 mL IV (16:09)
== END | disposition home or self-care (01) ==
LOC: MRI 14:26
PROVIDERS: PCP Nurse Practitioner; Referring Provider Internal Medicine Hematology & Oncology; Visit Provider Internal Medicine Hematology & Oncology
DX: R51.9 Headache, unspecified (principal)
CPT/HCPCS: 70553; A9575; A4216

== ENCOUNTER 2022-11-15 14:02 | Inpatient (IN) | payer MEDICARE, OTHER, SELFPAY ==
[2022-11-15 14:07] VITALS: BP 155/106; PULSE 93; RESP 18; TEMP 36.3; O2SAT 100; BMI 23.4
--- NOTE | 2022-11-15 14:17 | MRI_ITS ---
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 Patient has change in eye sight in bilateral eyes. Compare to previous MRI dated 10/21/22. TECHNIQUE: Standardized multiplanar fat and water weighted pulse sequences were obtained. 14 ml of IV Clariscan was administered for the contrast portion of the examination. COMPARISON: MRI of the brain dated September 13, 2022 and MRI brain dated October 21, 2022. FINDINGS: There is mild cerebral atrophy with widening of the extra-axial spaces and ventricular dilatation. There are multiple white matter hyperintensities, distributed throughout the deep white matter tracts of the cerebral hemispheres, consistent with moderate chronic white matter ischemic changes. There is no evidence for recent intracranial ischemia or other cause of cytotoxic edema on diffusion weighted imaging (DWI). Normal T2* images of the brain without demonstrated susceptibility artifact. There is no demonstrated hemosiderin stain. Normal bilateral basal ganglia. Normal thalami. There is no extra-axial fluid accumulation. Normal flow voids within the major intracranial circulation suggesting patency by spin echo criteria. Normal venous enhancement. There are numerous enhancing nodules scattered throughout the cerebrum and cerebellum several which appear larger than they were on the previous MRI. There are also enhancing nodules within the gene. These lesions have associated abnormal T2 hyperintensity. Normal sella turcica, pituitary gland, infundibular stalk, optic chiasm and hypothalamus. Normal tectal plate and pineal gland. There are chronic white matter ischemic changes of the gene. The midbrain and medulla are otherwise normal. There are multiple enhancing nodules throughout the cerebellum. There are large basal cisterns. Normal bilateral temporal bones. Normal bilateral internal auditory canals. No demonstrated orbital abnormality, within the constraints of a routine brain study. Normal visualized paranasal sinuses. Normal calvarium and skull base. Normal visualized soft tissue structures. Normal visualized upper cervical spine. MRI/Brain W/WO Contrast IMPRESSION: Continued enlargement of numerous scattered metastases throughout the cerebrum and cerebellum. Electronically Signed: Alexa Smart MD at 16:55 EDT ,
--- NOTE | 2022-11-15 14:25 | EX.ED.DYSGE1 ---
HPI <Dr. Akbar Ace MD - Last Filed: 11/15/22 14:55> History of Present Illness Chief Complaint: Neuro S/Sx Detail of Chief Complaint: Vision field and trouble with balance Informant: patient and spouse/S.O. 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 He had multiple by lateral lesions involving cerebellum and cerebrum that improved markedly on most recent MRI, October 21. He presents now because of worsening visual symptoms. Patient is describing a right homonymous hemianopsia. He has had trouble with speech but had trouble with speech since May. He had trouble with balance since May as well. He denies loss of conscious. He denies nausea or vomiting. He denies headache. Presently he is not on Decadron. Review of prior records indicates patient also has metastasis to the liver. Patient denies fever, chills night sweats. He denies ringing's ears or decreased hearing. He denies cardiac respiratory symptoms. Prior similar symptoms: Yes Recent Illness/Hospitalization: No PFSH <Dr. 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 Stress incontinence TIA (transient ischemic attack) Wears glasses Home Medications aspirin 81 mg tablet,delayed release (Adult Aspirin Regimen) 81 mg PO DAILY 12/29/21 [History Last Taken 01/12/22] cholecalciferol (vitamin D3) 10 mcg (400 unit) tablet (Vitamin D3) 10 mcg PO DAILY 01/24/22 [History Last Taken Unknown] calcium carbonate 600 mg calcium (1,500 mg) tablet (Calcium) 800 mg PO DAILY 01/26/22 [History Last Taken Unknown] ondansetron 8 mg disintegrating tablet 8 mg PO Q8H PRN nausea and vomiting #30 tabs 01/27/22 [Rx Last Taken Unknown] dexamethasone 4 mg tablet 4 mg PO DAILY 10/05/22 [History Last Taken Unknown] omeprazole 20 mg capsule,delayed release 20 mg PO DAILY 10/05/22 [History Last Taken Unknown] Disabled Parking Placard #1 ea 10/06/22 [Rx Last Taken Unknown] Wheeled walker #1 ea 10/06/22 [Rx Last Taken Unknown] lisinopril 20 mg-hydrochlorothiazide 12.5 mg tablet 1 tab PO DAILY blood pressure #90 tabs 10/07/22 [Rx Last Taken Unknown] zolpidem 10 mg tablet 10 mg PO .every night #30 tabs 10/07/22 [Rx Last Taken Unknown] dexamethasone 4 mg tablet 8 mg (2 x 4 mg) PO .COMPLEX #4 tabs 10/27/22 [Rx Last Taken Unknown] pantoprazole 40 mg tablet,delayed release (Protonix) 40 mg PO DAILY PPI 11/15/22 [History Last Taken Unknown] Allergy/AdvReac Type Severity Reaction Status Date / Time naproxen [From Aleve] Allergy Rash Verified 11/15/22 14:07 Family History Mother , at age 82 from a stroke CVA (cerebral vascular accident) Father Cancer Sister Cancer Other Hypertension Surgical History H/O back surgery H/O knee surgery History of colonoscopy History of prostatectomy Hx of hernia repair Social History Smoking Status: Former smoker Tobacco: How many years used: 15 alcohol intake: current alcohol intake frequency: a few times a month details: social drinker substance use type: does not use caffeine: Yes (2/day) ROS <Dr. Akbar Ace MD - Last Filed: 11/15/22 14:55> ROS ED Constitutional Constitutional ED: Denies chills, fever(s), subjective, sweats or weight loss Eyes Eyes: Reports change in vision bilateral; Denies blurry vision or diplopia ENT ENT ED: Denies ear pain, rhinorrhea or sore throat Cardiovascular Cardiovascular: Denies chest pain or palpitations Respiratory/Chest Respiratory/Chest: Denies cough, dyspnea or dyspnea on exertion Gastrointestinal Gastrointestinal: Denies abdominal pain, diarrhea or vomiting Genitourinary Genitourinary ED: Denies dysuria, hematuria or urinary frequency Musculoskeletal Musculoskeletal: Denies arthralgias, back pain, myalgias or neck pain Integumentary Denies abscess or Abrasions Neurologic Neurologic: Reports weakness; Denies headache(s) or paresthesias Psychiatric Psychiatric: Denies anxiety Hematologic/Lymphatic Hematologic/Lymphatic: Reports systems reviewed and no addt'l complaints, except as documented EXAM <Dr. Akbar Ace MD - Last Filed: 11/15/22 14:55> Physical Exam Const Vital Signs: 11/15/22 14:07 11/15/22 14:17 11/15/22 19:00 Temperature 97.4 F L Temperature Source Temporal Pulse Rate 93 76 Respiratory Rate 18 14 Respiratory Effort Normal Respiratory Pattern Normal Blood Pressure 155/106 H 134/79 H Blood Pressure Mean 122 97 Pulse Ox 100 98 Oxygen Delivery Method Room Air Room Air 11/15/22 19:35 Temperature 97.4 F L Temperature Source Temporal Pulse Rate 76 Respiratory Rate 14 Respiratory Effort Respiratory Pattern Blood Pressure 134/79 H Blood Pressure Mean 97 Pulse Ox 98 Oxygen Delivery Method Room Air Positive well developed General Appearance ED: well developed, NAD and pallor; Negative for cyanotic or diaphoretic HEENT Reports moist mucous membranes HEENT Narrative: Head is atraumatic normocephalic. Ears are normal. TMs are normal. Nares patent. Uvula is midline. There is no deviation tongue or protrusion. Eyes PERRL and EOMs intact bilaterally General Eye ED: Negative for scleral icterus Neck no lymphadenopathy, supple and no JVD Chest Wall inspection of chest normal and palpation of chest normal Resp normal respiratory effort and clear to auscultation bilaterally GI normal to inspection, nondistended, normoactive bowel sounds, non-tender, non-distended and no masses; Negative for hepatosplenomegaly Back/Spine no CVA tenderness Thoracic Spine / Upper Back: Negative for thoracic spinal tenderness Lumbar Spine / Lower Back: Negative for lumbar spinal tenderness Extremity normal to inspection General Extremety ED: Negative for tenderness Neuro oriented x3, CN's II-XII intact bilaterally and no sensory deficits noted Neuro Narrative: Patient has an incomplete right homonymous hemianopsia. Sensorium / Orientation: alert Motor Exam: strength 5/5 throughout Psych mental status grossly normal Skin no rashes or lesions noted, no wounds and No skin turgor normal General Skin Exam: pallor; Negative for jaundice <Dr. Ronnie Shah DO - Last Filed: 11/15/22 21:00> Physical Exam Const Vital Signs: 11/15/22 14:07 11/15/22 14:17 11/15/22 19:00 Temperature 97.4 F L Temperature Source Temporal Pulse Rate 93 76 Respiratory Rate 18 14 Respiratory Effort Normal Respiratory Pattern Normal Blood Pressure 155/106 H 134/79 H Blood Pressure Mean 122 97 Pulse Ox 100 98 Oxygen Delivery Method Room Air Room Air 11/15/22 19:35 Temperature 97.4 F L Temperature Source Temporal Pulse Rate 76 Respiratory Rate 14 Respiratory Effort Respiratory Pattern Blood Pressure 134/79 H Blood Pressure Mean 97 Pulse Ox 98 Oxygen Delivery Method Room Air MDM <Dr. Akbar Ace MD - Last Filed: 11/15/22 14:55> MDM MDM Narrative Medical decision making narrative: With history of prostate cancer metastasis to the liver and brain and now patient having new neurologic symptoms to obtain MRI of the brain with and without contrast. Blood work was obtained to assess renal function, CBC, H&H and platelet count. Prior records were reviewed. Prior outpatient records were reviewed. History & Record Review Additional record(s) reviewed:: Prior outpatient record, Prior ED visit and Prior labs Lab Data Attestation: I reviewed the patient's lab results. Lab results narrative: CBC reveals a macrocytic anemia. This is a chronic condition. Basic metabolic panel is unremarkable with a glucose of 120 and a normal CO2 anion gap and a GFR of 95. Labs: Laboratory Results - last 24 hr 11/15/22 11/15/22 14:29 15:03 WBC 9.3 RBC 3.49 L Hgb 11.0 L Hct 33.4 L MCV 95.7 H MCH 31.5 MCHC 32.9 RDW Std Deviation 53.3 H RDW Coeff of Izaiah 15.9 H Plt Count 169 MPV 9.9 Immature Gran % (Auto) 1.700 H Neut % (Auto) 67.7 Lymph % (Auto) 16.1 L [place] % (Auto) 14.1 H Eos % (Auto) 0.1 Baso % (Auto) 0.3 Absolute Neuts (auto) 6.3 Absolute Lymphs (auto) 1.50 Nucleated RBC % 0 Sodium 135 L Potassium 3.6 Chloride 101 Carbon Dioxide 28.0 Anion Gap 6 BUN 14 Creatinine 0.83 Estim Creat Clear Calc 70.96 Est GFR (MDRD) Af Amer 115 Est GFR (MDRD) Non-Af 95 BUN/Creatinine Ratio 16.9 Glucose 120 H Calcium 8.3 L POC Glucose 101 Radiography Diagnostic Testing: Clinical Impression(s) from Imaging Studies Brain MRI 11/15/22 14:17 IMPRESSION: Continued enlargement of numerous scattered metastases throughout the cerebrum and cerebellum. Electronically Signed: Alexa Smart MD at 16:55 EDT Reading Location ID and State: [address] [place] [address] , Service support , <Dr. Ronnie Shah, DO - Last Filed: 11/15/22 21:00> [facility] Lab Data Labs: Laboratory Results - last 24 hr 11/15/22 11/15/22 14:29 15:03 WBC 9.3 RBC 3.49 L Hgb 11.0 L Hct 33.4 L MCV 95.7 H MCH 31.5 MCHC 32.9 RDW Std Deviation 53.3 H RDW Coeff of Izaiah 15.9 H Plt Count 169 MPV 9.9 Immature Gran % (Auto) 1.700 H Neut % (Auto) 67.7 Lymph % (Auto) 16.1 L [place] % (Auto) 14.1 H Eos % (Auto) 0.1 Baso % (Auto) 0.3 Absolute Neuts (auto) 6.3 Absolute Lymphs (auto) 1.50 Nucleated RBC % 0 Sodium 135 L Potassium 3.6 Chloride 101 Carbon Dioxide 28.0 Anion Gap 6 BUN 14 Creatinine 0.83 Estim Creat Clear Calc 70.96 Est GFR (MDRD) Af Amer 115 Est GFR (MDRD) Non-Af 95 BUN/Creatinine Ratio 16.9 Glucose 120 H Calcium 8.3 L POC Glucose 101 Radiography Diagnostic Testing: Clinical Impression(s) from Imaging Studies Brain MRI 11/15/22 14:17 IMPRESSION: Continued enlargement of numerous scattered metastases throughout the cerebrum and cerebellum. Electronically Signed: Alexa Smart MD at 16:55 EDT , Treatment and Re-Evaluation Comments:: Patient was assigned to me for check of MRI and final disposition. MRI returns with continued edema and multiple brain metastases. Case was reviewed with on-call oncology Dr. Hussein. We talked about admission versus transfer but there really is not much that neurosurgery can do at this point. He is already had radiation therapy. Most likely will need hospice care. There is great reluctance in the room regarding hospice care. I do not know his case as well as his oncologist and I think the recommendations for hospice care would probably best be served coming from his oncology treatment team. We will administer Decadron and some IV fluids as family is worried about dehydration. Discharge Plan Dx/Rx/DC Orders Clinical Impression: Hemianopsia, Small cell lung cancer, Metastasis to brain, Frequent falls Disposition Disposition: Acute Care Hospital [facility] Discharge Date/Time: 11/15/22 20:15
[2022-11-15 14:37] LABS: Absolute Neutrophil Count 6.3 X10^3/uL (2.0-7.7); Basophil# 0.03 X10^3/uL; Basophil% 0.3 % (0-1); Eosinophil# 0.01 X10^3/uL; Eosinophils% 0.1 % (0-5); Hematocrit 33.4 % (40-54); Lymphocyte % 16.1 % (19-41); Mean Corp Hgb Conc 32.9 g/dL (32-36); Mean Corpuscular Hgb 31.5 pg (27.0-32.0); Mean Corpuscular Volume 95.7 fL (80-94); Mean Platelet Vol. 9.9 fl (6.2-12.0); Monocyte# 1.32 X10^3/uL; Monocyte% 14.1 % (0-10); NRBC Flagged by Analyzer 0 % (0-5); Neutrophil # 6.31 X10^3/uL (2.7-7.7); Neutrophil % 67.7 % (47-70); Platelet Count 169 K/mm3 (150-450); RBC Distribution Width CV 15.9 % (11.6-14.6); RBC Distribution Width SD 53.3 fl (35.1-43.9); Red Blood Count 3.49 M/mm3 (4.6-6.2); White Blood Count 9.3 K/mm3 (4.4-11.0)
[2022-11-15 14:50] LABS: Anion Gap 6 (5-15); BUN 14 mg/dL (7-18); BUN/Creat Ratio 16.9 RATIO (10-20); Calcium,Total 8.3 mg/dL (8.5-10.1); Chloride 101 mmol/L (98-107); Creatinine, Serum 0.83 mg/dL (0.70-1.30); EST Glomerular Filtration Rate 95 mL/min (>60); Est Glom Filt Rate - Afr Amer 115 mL/min (>60); Estimated Creatinine Clearance 70.96 ml/min; Glucose 120 mg/dL (74-106); Potassium 3.6 mmol/L (3.5-5.1); Sodium Level 135 mmol/L (136-145)
[2022-11-15 15:10] VITALS: BMI 25.5
[2022-11-15 15:22] LABS: Bedside Glucose 101 mg/dL (74-106)
[2022-11-15] MEDS: Ondansetron 4 MG/2 ML Vial IV (16:55)
[2022-11-15] MEDS: Morphine 4 MG/ML Syringe IV (16:55)
[2022-11-15 19:00] VITALS: BP 134/79; PULSE 76; RESP 14; O2SAT 98
[2022-11-15 19:35] VITALS: BP 134/79; PULSE 76; RESP 14; TEMP 36.3; O2SAT 98
--- NOTE | 2022-11-15 19:48 | PCM.HP.STD ---
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 Last fall was on the same day of presentation. Patient reported that his legs get weak and then he falls. Emergency department doctor discussed the case with patient and his family. Hospice was brought up. However patient and his family did not want hospice.At the emergency department patient was found to have a right hemianopia. Recent MRI showed enlarging lesions and brain edema. On presentation MRI was repeated and it continued to show worsening lesions in the brain. Patient is scheduled to have chemotherapy on 11/16/2022 Emergency Department doctor discussed the case with oncology cartoonist special effects. Oncology reported that steroids should be escalated and oncology will see patient while admitted. 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 Stress incontinence TIA (transient ischemic attack) Wears glasses Home Medications meclizine 12.5 mg tablet 12.5 mg PO BID-TID PRN dizziness #60 tabs 07/19/21 [Rx Last Taken Unknown] aspirin 81 mg tablet,delayed release (Adult Aspirin Regimen) 81 mg PO DAILY 12/29/21 [History Last Taken 01/12/22] cholecalciferol (vitamin D3) 10 mcg (400 unit) tablet (Vitamin D3) 10 mcg PO DAILY 01/24/22 [History Last Taken Unknown] calcium carbonate 600 mg calcium (1,500 mg) tablet (Calcium) 800 mg PO DAILY 01/26/22 [History Last Taken Unknown] ondansetron 8 mg disintegrating tablet 8 mg PO Q8H PRN nausea and vomiting #30 tabs 01/27/22 [Rx Last Taken Unknown] pantoprazole 40 mg tablet,delayed release (Protonix) 40 mg PO BID #90 tabs 05/17/22 [Rx Last Taken Unknown] dexamethasone 4 mg tablet 4 mg PO DAILY 10/05/22 [History Last Taken Unknown] omeprazole 20 mg capsule,delayed release 20 mg PO DAILY 10/05/22 [History Last Taken Unknown] Disabled Parking Placard #1 ea 10/06/22 [Rx Last Taken Unknown] Wheeled walker #1 ea 10/06/22 [Rx Last Taken Unknown] lisinopril 20 mg-hydrochlorothiazide 12.5 mg tablet 1 tab PO DAILY #90 tabs 10/07/22 [Rx Last Taken Unknown] zolpidem 10 mg tablet 10 mg PO .every night #30 tabs 10/07/22 [Rx Last Taken Unknown] dexamethasone 4 mg tablet 8 mg (2 x 4 mg) PO .COMPLEX #4 tabs 10/27/22 [Rx Last Taken Unknown] lidocaine-prilocaine 2.5 %-2.5 % topical cream 1 applic topical ONCE PRN port access 30 days #30 grams 10/27/22 [Rx Last Taken Unknown] Allergy/AdvReac Type Severity Reaction Status Date / Time naproxen [From Aleve] Allergy Rash Verified 11/15/22 14:07 Family History Mother , at age 82 from a stroke CVA (cerebral vascular accident) Father Cancer Sister Cancer Other Hypertension Surgical History H/O back surgery H/O knee surgery History of colonoscopy History of prostatectomy Hx of hernia repair Social History Smoking Status: Former smoker Tobacco: How many years used: 15 alcohol intake: current alcohol intake frequency: a few times a month details: social drinker substance use type: does not use caffeine: Yes (2/day) ROS ROS Narrative Pertinent positives and pertinent negatives as noted in HPI. All other systems were reviewed and are negative Vital Signs Vital Signs Vital Signs: 11/15/22 14:07 11/15/22 14:17 11/15/22 19:00 Temperature 97.4 F L Temperature Source Temporal Pulse Rate 93 76 Respiratory Rate 18 14 Respiratory Effort Normal Respiratory Pattern Normal Blood Pressure 155/106 H 134/79 H Blood Pressure Mean 122 97 Pulse Ox 100 98 Oxygen Delivery Method Room Air Room Air Weight Weight: 76.3 kg Body Mass Index (BMI) 25.5 Physical Exam Narrative Physical exam: General: Well-nourished, well-developed. Head: Normocephalic, atraumatic, no tenderness Eyes: Vision is grossly intact. EOMI ENT, no trauma, moist mucous membranes, no rhinorrhea Neck: Nontender, No thyromegaly. CVS: Regular rate and rhythm. S1-S2 present. No murmur, gallop or rub. Respiratory : Diminished bilaterally, chest wall nontender Abdomen: Soft, nontender, nondistended, normal bowel sounds, no masses : Deferred Back: Nontender, no CVA tenderness Extremities: Nontender full range of motion, no trauma. Bilateral feet edema. Skin: Normal color, no trauma, abrasions Neuro: Alert, oriented. Right hemianopia. Psychiatry: Anxious. Results Lab / Micro Data 11/15/22 14:29 11/15/22 14:29 Labs: Laboratory Results - last 24 hr 11/15/22 14:29: WBC 9.3, RBC 3.49 L, Hgb 11.0 L, Hct 33.4 L, MCV 95.7 H, MCH 31.5, MCHC 32.9, RDW Std Deviation 53.3 H, RDW Coeff of Izaiah 15.9 H, Plt Count 169, MPV 9.9, Immature Gran % (Auto) 1.700 H, Neut % (Auto) 67.7, Lymph % (Auto) 16.1 L, [place] % (Auto) 14.1 H, Eos % (Auto) 0.1, Baso % (Auto) 0.3, Absolute Neuts (auto) 6.3, Absolute Lymphs (auto) 1.50, Nucleated RBC % 0, Sodium 135 L, Potassium 3.6, Chloride 101, Carbon Dioxide 28.0, Anion Gap 6, BUN 14, Creatinine 0.83, Estim Creat Clear Calc 70.96, Est GFR (MDRD) Af Amer 115, Est GFR (MDRD) Non-Af 95, BUN/Creatinine Ratio 16.9, Glucose 120 H, Calcium 8.3 L 11/15/22 15:03: POC Glucose 101 Radiology Impression Brain MRI 11/15/22 14:17 IMPRESSION: Continued enlargement of numerous scattered metastases throughout the cerebrum and cerebellum. 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 MRI of the brain was independently interpreted and I agree with radiology interpretation. Likewise MRI on 10/21/2022 showed metastatic lesions some with tiny foci of subacute hemorrhage. Escalate home steroids. Oncology consult. Multiple falls Likely secondary to metastatic cancer. However cannot rule out leg weakness. PT OT worked with patient. Case management consult. Hypertension Blood pressure is stable. Continue home blood pressure medications when reconciled. DVT prophylaxis Subcutaneous Lovenox ordered. Time spent in the patient's overall evaluation,decision-making process, review of diagnostic data, adjustment of management, discussion with other providers, nursing nursing and ancillary staff involved in patient's care documentation, 35 minutes. Charges/Coding Visit Charges Inpatient E&M: 24421 Init Hosp L3
[2022-11-15] MEDS: dexAMETHasone 10 MG/ML Vial IV (19:59)
[2022-11-15] MEDS: 0.9% Normal Saline 1,000 ML 999 ML IV (19:59)
[2022-11-15 20:23] VITALS: BMI 23.3
[2022-11-15 20:41] VITALS: BP 179/94; PULSE 72; RESP 16; TEMP 36.9; O2SAT 98
[2022-11-15] MEDS: Zolpidem Tartrate 5 MG Tablet PO (21:56)
[2022-11-15 22:35] VITALS: O2SAT 98
[2022-11-15 23:56] VITALS: BP 152/99
--- NOTE | 2022-11-16 00:08 | NURSING ---
Pt was found on the floor by his bed while this RN was doing rounds. Pt denies hitting his head, but complains of right shoulder and hip pain. Vital signs are stable and blood sugar has been checked. Pt stated I was trying to get up and use the bathroom.
--- NOTE | 2022-11-16 00:32 | RAD_ITS ---
INDICATION: Fall -- portable EXAMINATION/TECHNIQUE: X-RAY - XR Hip Unilateral with Pelvis when performed; 2-3 Views COMPARISON: CT abdomen and pelvis October 13, 2022. FINDINGS: A frontal view of the pelvis as well as frontal and lateral views of the right hip were obtained. An intertrochanteric fracture of the right femur is new since the prior exam. The fracture is not grossly displaced. No hip dislocation. Hardware in the lumbar spine. RAD/HIP, UNI W/ Pelvis 2-3 Views IMPRESSION: Acute intertrochanteric fracture of the right femur. Electronically Signed: Josue Ring MD at 2:51 EDT ,
--- NOTE | 2022-11-16 00:32 | RAD_ITS ---
INDICATION: Fall EXAMINATION/TECHNIQUE: X-RAY - RIGHT XR Scapula 3 VIEWS COMPARISON: None. FINDINGS: AP and Y views of the right scapula were obtained. No acute fracture is identified. RAD/Scapula IMPRESSION: No acute fracture identified. Electronically Signed: Josue Ring MD at 2:54 EDT ,
--- NOTE | 2022-11-16 00:32 | RAD_ITS ---
INDICATION: Fall EXAMINATION/TECHNIQUE: X-RAY - RIGHT XR Shoulder 2 Views COMPARISON: None. FINDINGS: AP and Y views of the right shoulder were obtained. No acute fracture is identified. No dislocation. RAD/Shoulder min 2 Views IMPRESSION: No acute fracture or dislocation. Electronically Signed: Josue Ring MD at 2:56 EDT ,
[2022-11-16 00:34] VITALS: BP 155/105; PULSE 86; RESP 17; O2SAT 97
[2022-11-16 00:48] LABS: Bedside Glucose 151 mg/dL (74-106)
--- NOTE | 2022-11-16 01:09 | RAD_ITS ---
INDICATION: fall EXAMINATION: Frontal view of the chest COMPARISON: Chest x-ray September 11, 2022. FINDINGS: Frontal view of the chest was obtained. The tip of the right Port-A-Cath projects over the lower superior vena cava. The cardiac silhouette is not enlarged. No confluent airspace disease. No pneumothorax. No acute fracture identified. RAD/Chest 1 View (Portable) IMPRESSION: No acute pulmonary disease. Electronically Signed: Josue Ring MD at 2:19 EDT ,
[2022-11-16 02:35] VITALS: BP 146/96; PULSE 91; RESP 16; TEMP 36.6; O2SAT 95
[2022-11-16 05:10] VITALS: BMI 23.3
[2022-11-16 05:32] LABS: Absolute Lymphocyte Count 0.82 X10^3/uL (0.83-4.51); Absolute Neutrophil Count 13.9 X10^3/uL (2.0-7.7); Basophil# 0.04 X10^3/uL; Basophil% 0.3 % (0-1); Hematocrit 33.5 % (40-54); Hemoglobin 11.2 g/dL (13.0-16.5); Lymphocyte # 0.82 X10^3/ul (0.83-4.51); Lymphocyte % 5.2 % (19-41); Mean Corp Hgb Conc 33.4 g/dL (32-36); Mean Corpuscular Hgb 31.7 pg (27.0-32.0); Mean Corpuscular Volume 94.9 fL (80-94); Mean Platelet Vol. 10.1 fl (6.2-12.0); Monocyte# 0.77 X10^3/uL; Monocyte% 4.8 % (0-10); NRBC Flagged by Analyzer 0 % (0-5); Neutrophil % 87.3 % (47-70); Platelet Count 204 K/mm3 (150-450); RBC Distribution Width CV 15.7 % (11.6-14.6); RBC Distribution Width SD 52.7 fl (35.1-43.9); Red Blood Count 3.53 M/mm3 (4.6-6.2); White Blood Count 15.9 K/mm3 (4.4-11.0)
[2022-11-16 05:59] LABS: Anion Gap 8 (5-15); BUN 15 mg/dL (7-18); BUN/Creat Ratio 25.6 RATIO (10-20); Calcium,Total 8.3 mg/dL (8.5-10.1); Chloride 102 mmol/L (98-107); Creatinine, Serum 0.59 mg/dL (0.70-1.30); EST Glomerular Filtration Rate 142 mL/min (>60); Est Glom Filt Rate - Afr Amer 172 mL/min (>60); Glucose 134 mg/dL (74-106); Potassium 3.9 mmol/L (3.5-5.1); Sodium Level 135 mmol/L (136-145)
[2022-11-16 08:38] VITALS: O2SAT 94
--- NOTE | 2022-11-16 09:20 | RAD_ITS ---
HISTORY: fracture -- AP/Lat. TECHNIQUE: XR Femur Min 2 Views. COMPARISON: Right hip same day. FINDINGS: BONES : Intertrochanteric fracture of the right femur. No significant displacement. Mild osteopenia. JOINTS: No dislocation. Mild degenerative change. RAD/Femur Min 2 Views IMPRESSION: Intertrochanteric fracture of the right femur. Electronically Signed: Suly Crow MD at 11:19 EDT ,
--- NOTE | 2022-11-16 09:29 | CASEMGMT ---
Discharge Planning A list of SNF providers including quality and resource use data and consistent with the patient?s preferred geographic region, medical needs, and insurance network was created in [employer] Guide. This list was provided to the RN CM. Rosemary Poole, Discharge Planning Asst.
--- NOTE | 2022-11-16 09:47 | CASEMGMT ---
MICHAELA HUTCHINS Face to Face with patient for initial transition planning/care coordination assessment. RN CUONG introduced self and role at [facility]. Patient lying in bed, alert and oriented. Patient willing to participate in assessment and is able to answer all questions appropriately (he at times allows his to answer questions for him). Care providers, pharmacy, and demographics verified. Patient wishes to discharge home. We discussed, pending possible surgery and OT/PT, and that we may need to discuss HHC Vs. SNF. A list of SNF providers including quality and resource use data and consistent with the patient?s preferred geographical region, medical needs, and insurance network were provided from the [employer] Guide. Patient states he has no further needs or concerns at this time. CM to follow for discharge planning needs that may arise. PCP:KASH Banks Specialists:Nolvia (oncologist) Preferred Pharmacy:[facility] Insurance:Medicare Part A & B Prescription Benefit: Yes (Part F) Living Will/HPOA: Yes, Veronica LNOK: Veronica Living Arrangements: Patient's states they live at home in a duplex ranch, FFSU, and two steps to enter with railing. Patient denies any difficulty using stairs, but states his does assist with ALDs. states someone sits with patient while she gets groceries. Patient reports Dr. De Souza previously ordered palliative care prior to this admission, but they only came for an initial interview and never came back. Transportation: DME/HHC: states they have a shower chair, grab bars in the shower, walker with wheels (no seat), urinals, tray for his recliner, gait belt, BP monitor, and pulse ox. states she thinks it would be helpful to get a railing for his bed, but patient thinks he will be fine with what we have. Preferred DME company is [employer]. Patient denies previous SNF and HHC. Disposition Plan: TBD. Anticipate home with possible hospice. Traci MITCHELL, RN, CM
--- NOTE | 2022-11-16 10:31 | CON.PCM.ON_ITS ---
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 Prognosis is grave with very limited life expectancy after such a rapid recurrence. Advise Decadron 4 mg p.o. every morning and home hospice referral. Met with patient and his , discussed. All in agreement (2) Liver metastases: Status: Chronic Code(s): C78.7 - Secondary malignant neoplasm of liver and intrahepatic bile duct Plan: Systemic chemotherapy will be discontinued now (3) Multiple falls: Status: Chronic Code(s): R29.6 - Repeated falls (4) Fracture of right hip: Status: Acute Code(s): S72.001A - Fracture of unspecified part of neck of right femur, initial encounter for closed fracture Plan: Due to grave prognosis from recurrent cancer advise conservative management. HPI Consult Data Date of Service:: 11/16/22 PCP / Referring Provider: MARLENY Diaz Attending: Dr. Aj Torres DO Chief Complaint Chief Complaint: Falls History of Present Illness History of Present Illness: 77-year-old gentleman hospitalized after multiple falls and a fracture of the right hip. Medical history notable for extensive stage small cell lung cancer first diagnosed December 2021 Status post: Carboplatin, etoposide and atezolizumab January,-May 2022 (6 cycles) [place] Atezolizumab maintenance June -August 2022 in [place]. Whole brain radiation therapy for innumerable extensive bilateral brain metastases (in [place]) 3000 cGy in 10 fractions September 16, 2022?September 30, 2022. Lurbinectedin November 02, 2022 Advanced Directives Power of Puppet Master: Yes Living Will: Yes [facility] Medical History Abdominal bloating Abnormal EKG Anxiety Cardiology follow-up encounter CINV (chemotherapy-induced nausea and vomiting) Decreased mobility Easy bruising Encounter for education Encounter for immunotherapy Erectile dysfunction Former smoker Gastric reflux Hand foot syndrome History of echocardiogram History of stress test Hypertension Insomnia Liver metastases Malnutrition Metastasis to brain Micturition painful Nocturia Oral candidiasis Poor urinary stream Prerenal azotemia Prostate cancer Right bundle branch block Small cell lung cancer Stress incontinence TIA (transient ischemic attack) Wears glasses Home Medications aspirin 81 mg tablet,delayed release (Adult Aspirin Regimen) 81 mg PO DAILY 12/29/21 [History Last Taken 01/12/22] cholecalciferol (vitamin D3) 10 mcg (400 unit) tablet (Vitamin D3) 10 mcg PO DAILY 01/24/22 [History Last Taken Unknown] calcium carbonate 600 mg calcium (1,500 mg) tablet (Calcium) 800 mg PO DAILY 01/26/22 [History Last Taken Unknown] ondansetron 8 mg disintegrating tablet 8 mg PO Q8H PRN nausea and vomiting #30 tabs 01/27/22 [Rx Last Taken Unknown] dexamethasone 4 mg tablet 4 mg PO DAILY 10/05/22 [History Last Taken Unknown] omeprazole 20 mg capsule,delayed release 20 mg PO DAILY 10/05/22 [History Last Taken Unknown] Disabled Parking Placard #1 ea 10/06/22 [Rx Last Taken Unknown] Wheeled walker #1 ea 10/06/22 [Rx Last Taken Unknown] lisinopril 20 mg-hydrochlorothiazide 12.5 mg tablet 1 tab PO DAILY blood pressure #90 tabs 10/07/22 [Rx Last Taken Unknown] zolpidem 10 mg tablet 10 mg PO .every night #30 tabs 10/07/22 [Rx Last Taken Unknown] dexamethasone 4 mg tablet 8 mg (2 x 4 mg) PO .COMPLEX #4 tabs 10/27/22 [Rx Last Taken Unknown] pantoprazole 40 mg tablet,delayed release (Protonix) 40 mg PO DAILY PPI 11/15/22 [History Last Taken Unknown] Allergy/AdvReac Type Severity Reaction Status Date / Time naproxen [From Aleve] Allergy Rash Verified 11/15/22 14:07 Family History Mother , at age 82 from a stroke CVA (cerebral vascular accident) Father Cancer Sister Cancer Other Hypertension Surgical History H/O back surgery H/O knee surgery History of colonoscopy History of prostatectomy Hx of hernia repair Social History Smoking Status: Former smoker Tobacco: How many years used: 15 alcohol intake: current alcohol intake frequency: a few times a month details: social drinker substance use type: does not use caffeine: Yes (2/day) ROS Constitutional Constitutional: Reports fatigue, poor appetite and weight loss; Denies fever(s) ENT HEENT: Denies dysphagia Cardiovascular Cardiovascular: Denies chest pain or edema Respiratory/Chest Respiratory/Chest: Denies cough or dyspnea Gastrointestinal Gastrointestinal: Denies abdominal pain or change in bowel habits Genitourinary Genitourinary: Denies dysuria Musculoskeletal Musculoskeletal: Denies back pain or extremity pain Integumentary Integumentary: Denies new lesions Neurologic Neurologic: Reports other visual disturbances; Denies abnormal speech, behavior changes, focal weakness or headache(s) Psychiatric Psychiatric: Denies anxiety Hematologic/Lymphatic Hematologic/Lymphatic: Denies easy bleeding or easy bruising Physical Exam Narrative ECOG 3 Const no apparent distress Constitutional Narrative: Recent memory recall is impaired and needed assistance from . General Appearance: ill appearing Positive for chronically Orientation / Consciousness: oriented to person and oriented to place; Negative for oriented to time Nutritional Appearance: cachectic HEENT normocephalic Head and Scalp: atraumatic Eyes no scleral icterus Neck no lymphadenopathy and no JVD Resp normal respiratory effort and clear to auscultation bilaterally Cardio regular rate and regular rhythm GI soft to palpation and non-tender Palpation: hepatomegaly Extremity no clubbing, cyanosis or edema Skin no rashes or lesions noted Neuro CN's II-XII intact bilaterally, moves all extremities and no focal motor deficits Motor Exam: general weakness Psych cooperative, affect normal and speech normal Vital Signs Temperature 97.8 F 11/16/22 02:35 Temperature Source Oral 11/16/22 02:35 Pulse Rate 91 11/16/22 02:35 Pulse Strength Normal (2+) 11/16/22 09:07 Respiratory Rate 16 11/16/22 02:35 Respiratory Effort Normal, Non-Labored 11/16/22 09:08 Respiratory Depth Normal 11/16/22 09:08 Respiratory Pattern Normal 11/16/22 09:08 Blood Pressure 146/96 H 11/16/22 02:35 Blood Pressure Mean 112 11/16/22 02:35 Blood Pressure Source Monitor 11/16/22 02:35 Blood Pressure Position Semi-Fowlers 11/16/22 02:35 Blood Pressure Location Left Arm 11/16/22 02:35 Pulse Ox 94 11/16/22 08:38 Oxygen Delivery Method Room Air 11/16/22 09:08 Laboratory Results - last 24 hr 11/15/22 14:29: WBC 9.3, RBC 3.49 L, Hgb 11.0 L, Hct 33.4 L, MCV 95.7 H, MCH 31.5, MCHC 32.9, RDW Std Deviation 53.3 H, RDW Coeff of Izaiah 15.9 H, Plt Count 169, MPV 9.9, Immature Gran % (Auto) 1.700 H, Neut % (Auto) 67.7, Lymph % (Auto) 16.1 L, [place] % (Auto) 14.1 H, Eos % (Auto) 0.1, Baso % (Auto) 0.3, Absolute Neuts (auto) 6.3, Absolute Lymphs (auto) 1.50, Nucleated RBC % 0, Sodium 135 L, Potassium 3.6, Chloride 101, Carbon Dioxide 28.0, Anion Gap 6, BUN 14, Creatinine 0.83, Estim Creat Clear Calc 70.96, Est GFR (MDRD) Af Amer 115, Est GFR (MDRD) Non-Af 95, BUN/Creatinine Ratio 16.9, Glucose 120 H, Calcium 8.3 L 11/15/22 15:03: POC Glucose 101 11/16/22 00:29: POC Glucose 151 H 11/16/22 04:52: WBC 15.9 H, RBC 3.53 L, Hgb 11.2 L, Hct 33.5 L, MCV 94.9 H, MCH 31.7, MCHC 33.4, RDW Std Deviation 52.7 H, RDW Coeff of Izaiah 15.7 H, Plt Count 204, MPV 10.1, Immature Gran % (Auto) 2.400 H, Neut % (Auto) 87.3 H, Lymph % (Auto) 5.2 L, [place] % (Auto) 4.8, Eos % (Auto) 0.0, Baso % (Auto) 0.3, Absolute Neuts (auto) 13.9 H, Absolute Lymphs (auto) 0.82 L, Nucleated RBC % 0, Sodium 135 L, Potassium 3.9, Chloride 102, Carbon Dioxide 25.0, Anion Gap 8, BUN 15, Creatinine 0.59 L, Estim Creat Clear Calc 58.90, Est GFR (MDRD) Af Amer 172, Est GFR (MDRD) Non-Af 142, BUN/Creatinine Ratio 25.6 H, Glucose 134 H, Calcium 8.3 L 11/16/22 05:24: Blood Type O POSITIVE, Antibody Screen NEGATIVE Diagnostic Data I personally reviewed patient's brain MRI findings and concur with report Brain MRI 11/15/22 14:17 IMPRESSION: Continued enlargement of numerous scattered metastases throughout the cerebrum and cerebellum. Electronically Signed: Alexa Smart MD at 16:55 EDT Reading Location ID and State: [facility] / [place] , Service support , Hip/Pelvis X-Ray 11/16/22 00:32 IMPRESSION: Acute intertrochanteric fracture of the right femur. Electronically Signed: Josue Ring MD at 2:51 EDT , Scapula X-Ray 11/16/22 00:32 IMPRESSION: No acute fracture identified. Electronically Signed: Josue Ring MD at 2:54 EDT , Shoulder X-Ray 11/16/22 00:32 IMPRESSION: No acute fracture or dislocation. Electronically Signed: Josue Ring MD at 2:56 EDT , Chest X-Ray 11/16/22 01:09 IMPRESSION: No acute pulmonary disease. Electronically Signed: Josue Ring MD at 2:19 EDT ,
[2022-11-16 11:25] VITALS: BP 122/74; PULSE 104; RESP 16; TEMP 36.8; O2SAT 96
[2022-11-16] MEDS: Lisinopril 20 MG Tablet PO (11:27)
[2022-11-16] MEDS: Pantoprazole Sodium 40 MG Tablet PO (11:27)
[2022-11-16] MEDS: hydroCHLOROthiazide 12.5mg 12.5 MG PO (11:27)
[2022-11-16] MEDS: dexAMETHasone 4 MG Tablet PO (11:27)
[2022-11-16] MEDS: Aspirin E.C. 81 MG Tablet PO (11:27)
[2022-11-16] MEDS: Calcium (Elemental) 500 MG Tablet PO (11:28)
--- NOTE | 2022-11-16 12:57 | CON.PCM_ITS ---
Assessment & Plan Assessment/Plan (1) Liver metastases: (2) Metastasis to brain: (3) Small cell lung cancer: (4) Intertrochanteric fracture of right hip: QUALIFIERS: Encounter type: initial encounter Fracture type: closed Fracture alignment: nondisplaced Qualified Code(s): S72.144A - Nondisplaced intertrochanteric fracture of right femur, initial encounter for closed fracture PLAN: Plan Patient was seen at bedside with his daughter and the daughter's mother however the patient's was not present. I discussed options in regards to his right hip fracture. Surgical option would include cephalomedullary fixation with a nathaly this was described to the patient and the family risk benefits alternatives were reviewed. Patient is unsure if he wants to proceed with surgery as he is going to be on hospice. He did walk prior to this and he does transfer from the toilet. I did explain that sometimes this procedure is performed for palliative purposes to decrease pain with transfers and allow him to weight-bear again. Obvious risk include infection blood clot further fracture, Wound healing complication. He would like to decide together with his she is not currently there we will follow-up and follow their wishes, I currently have him on the operative schedule for November 17 at 1:45. HPI Consult Data Date of Consult: 11/16/22 HPI Narrative Reason for Consultation: Right intertrochanteric fracture HPI Narrative: NELLIE ASHLEY, is a 77 M with metastatic brain cancer who does not have good prognosis had a ground-level fall last evening in the hospital sustaining injury to his right hip and developing a nondisplaced intertrochanteric fracture. Patient is comfortable when not moving. He is seen with his daughter and her mother at bedside. [facility] Medical History Abdominal bloating Abnormal EKG Anxiety Cardiology follow-up encounter CINV (chemotherapy-induced nausea and vomiting) Decreased mobility Easy bruising Encounter for education Encounter for immunotherapy Erectile dysfunction Former smoker Gastric reflux Hand foot syndrome History of echocardiogram History of stress test Hypertension Insomnia Liver metastases Malnutrition Metastasis to brain Micturition painful Nocturia Oral candidiasis Poor urinary stream Prerenal azotemia Prostate cancer Right bundle branch block Small cell lung cancer Stress incontinence TIA (transient ischemic attack) Wears glasses Home Medications aspirin 81 mg tablet,delayed release (Adult Aspirin Regimen) 81 mg PO DAILY 12/29/21 [History Last Taken 01/12/22] cholecalciferol (vitamin D3) 10 mcg (400 unit) tablet (Vitamin D3) 10 mcg PO DAILY 01/24/22 [History Last Taken Unknown] calcium carbonate 600 mg calcium (1,500 mg) tablet (Calcium) 800 mg PO DAILY 01/26/22 [History Last Taken Unknown] ondansetron 8 mg disintegrating tablet 8 mg PO Q8H PRN nausea and vomiting #30 tabs 01/27/22 [Rx Last Taken Unknown] dexamethasone 4 mg tablet 4 mg PO DAILY 10/05/22 [History Last Taken Unknown] omeprazole 20 mg capsule,delayed release 20 mg PO DAILY 10/05/22 [History Last Taken Unknown] Disabled Parking Placard #1 ea 10/06/22 [Rx Last Taken Unknown] Wheeled walker #1 ea 10/06/22 [Rx Last Taken Unknown] lisinopril 20 mg-hydrochlorothiazide 12.5 mg tablet 1 tab PO DAILY blood pressure #90 tabs 10/07/22 [Rx Last Taken Unknown] zolpidem 10 mg tablet 10 mg PO .every night #30 tabs 10/07/22 [Rx Last Taken Unknown] dexamethasone 4 mg tablet 8 mg (2 x 4 mg) PO .COMPLEX #4 tabs 10/27/22 [Rx Last Taken Unknown] pantoprazole 40 mg tablet,delayed release (Protonix) 40 mg PO DAILY PPI 11/15/22 [History Last Taken Unknown] magnesium 250 mg tablet 500 mg PO DAILY low magnesium 11/16/22 [History Last Taken Unknown] Allergy/AdvReac Type Severity Reaction Status Date / Time naproxen [From Aleve] Allergy Rash Verified 11/15/22 14:07 Family History Mother , at age 82 from a stroke CVA (cerebral vascular accident) Father Cancer Sister Cancer Other Hypertension Surgical History H/O back surgery H/O knee surgery History of colonoscopy History of prostatectomy Hx of hernia repair Social History Smoking Status: Former smoker Tobacco: How many years used: 15 alcohol intake: current alcohol intake frequency: a few times a month details: social drinker substance use type: does not use caffeine: Yes (2/day) Physical Exam Const alert, oriented x3 and no apparent distress General Appearance: cooperative Orientation / Consciousness: awake Extremity Extremity Narrative: Positive logroll No open wounds around the hip no significant ecchymosis compartments soft lance rovascular intact Lab / Micro Data 11/16/22 04:52 11/16/22 04:52 Labs: Laboratory Results - last 24 hr 11/15/22 14:29: WBC 9.3, RBC 3.49 L, Hgb 11.0 L, Hct 33.4 L, MCV 95.7 H, MCH 31.5, MCHC 32.9, RDW Std Deviation 53.3 H, RDW Coeff of Izaiah 15.9 H, Plt Count 169, MPV 9.9, Immature Gran % (Auto) 1.700 H, Neut % (Auto) 67.7, Lymph % (Auto) 16.1 L, [place] % (Auto) 14.1 H, Eos % (Auto) 0.1, Baso % (Auto) 0.3, Absolute Neuts (auto) 6.3, Absolute Lymphs (auto) 1.50, Nucleated RBC % 0, Sodium 135 L, Potassium 3.6, Chloride 101, Carbon Dioxide 28.0, Anion Gap 6, BUN 14, Creatinine 0.83, Estim Creat Clear Calc 70.96, Est GFR (MDRD) Af Amer 115, Est GFR (MDRD) Non-Af 95, BUN/Creatinine Ratio 16.9, Glucose 120 H, Calcium 8.3 L 11/15/22 15:03: POC Glucose 101 11/16/22 00:29: POC Glucose 151 H 11/16/22 04:52: WBC 15.9 H, RBC 3.53 L, Hgb 11.2 L, Hct 33.5 L, MCV 94.9 H, MCH 31.7, MCHC 33.4, RDW Std Deviation 52.7 H, RDW Coeff of Izaiah 15.7 H, Plt Count 204, MPV 10.1, Immature Gran % (Auto) 2.400 H, Neut % (Auto) 87.3 H, Lymph % (Auto) 5.2 L, [place] % (Auto) 4.8, Eos % (Auto) 0.0, Baso % (Auto) 0.3, Absolute Neuts (auto) 13.9 H, Absolute Lymphs (auto) 0.82 L, Nucleated RBC % 0, Sodium 135 L, Potassium 3.9, Chloride 102, Carbon Dioxide 25.0, Anion Gap 8, BUN 15, Creatinine 0.59 L, Estim Creat Clear Calc 58.90, Est GFR (MDRD) Af Amer 172, Est GFR (MDRD) Non-Af 142, BUN/Creatinine Ratio 25.6 H, Glucose 134 H, Calcium 8.3 L 11/16/22 05:24: Blood Type O POSITIVE, Antibody Screen NEGATIVE Radiology Impression Brain MRI 11/15/22 14:17 IMPRESSION: Continued enlargement of numerous scattered metastases throughout the cerebrum and cerebellum. Electronically Signed: Alexa Smart MD at 16:55 EDT Reading Location ID and State: [address] [place] [address] , Service support , Hip/Pelvis X-Ray 11/16/22 00:32 IMPRESSION: Acute intertrochanteric fracture of the right femur. Electronically Signed: Josue Ring MD at 2:51 EDT , Scapula X-Ray 11/16/22 00:32 IMPRESSION: No acute fracture identified. Electronically Signed: Josue Ring MD at 2:54 EDT , Shoulder X-Ray 11/16/22 00:32 IMPRESSION: No acute fracture or dislocation. Electronically Signed: Josue Ring MD at 2:56 EDT , Chest X-Ray 11/16/22 01:09 IMPRESSION: No acute pulmonary disease. Electronically Signed: Josue Ring MD at 2:19 EDT , Femur X-Ray 11/16/22 09:20 IMPRESSION: Intertrochanteric fracture of the right femur. Electronically Signed: Suly Crow MD at 11:19 EDT ,
--- NOTE | 2022-11-16 14:32 | CHAPLAIN ---
Type of Pastoral Visit _x__ Initial Visit ___ Follow-up Visit ___ On-call Visit ___ General Patient Visit ___ Spiritual Assessment ___ Family Conference ___ Bereavement ___ Rapid Response ___ Code Blue ___ Other (describe below) Pastoral Care Referral From _x__ Patient ___ Family ___ Nurse ___ Physician ___ Curriculum Assistant Principal ___ Driver/Refuse Collector ___ Other (describe below) Sacrament/Intervention _x__ Active listening ___ Anointing ___ Catholic ___ Bereavement ___ Communion _x__ Mellissa exploration ___ ___ Life review _x__ Prayer ___ Reconciliation ___ Sacrament of Sick _x__ Supportive presence ___ Wedding ___ Other (describe below) Pastoral Comments patient is surrounded by family members in the room; patient is welcoming; asked about his needs, his ability to cope with situation, his concerns; pt declares that he is fine but admits to serious nature of his illness; pt states that he has made his peace with God, although not church; several members of the family begin to cry; pt says that he is not in need of anything but family members speaks that he is worried if we are going to be okay, and we say yes we are; pt offered support in the way that he wants and needs it; pt says he is willing for a spoken prayer; prayer given for patient and family members start to cry again, (presumably) runs into hallway weeping; prayer is finished, patient expresses thanks, offer of ongoing support; went and found and another family member to bring consoling presence and assurance that crying and feelings are normal and expected; spouse or SO states spiritual quesitons about ; offer of support, listening ear, mellissa that navigates the unanswerable questions;
[2022-11-16 16:06] VITALS: BP 118/79; PULSE 104; RESP 16; TEMP 36.9; O2SAT 98
[2022-11-16] MEDS: Acetaminophen 325 MG Tablet 650 MG PO (18:53)
--- NOTE | 2022-11-16 19:26 | PCM.PN.HOSP ---
Reason for Visit Reason for Visit: Diagnoses Malignant neoplasm of unspecified part of unspecified bronchus or lung (11/16/22) Secondary malignant neoplasm of liver and intrahepatic bile duct (11/16/22) Secondary malignant neoplasm of brain (11/16/22) Repeated falls (11/16/22) Fracture of unspecified part of neck of right femur, initial encounter for closed fracture (11/16/22) Nondisplaced intertrochanteric fracture of right femur, initial encounter for closed fracture (11/16/22) Subjective Subjective Seen and examined today, I talked with his family earlier today he is consented to outpatient hospice when he goes home. Patient unfortunately sustained a right hip fracture early this morning in the hospital, initially orthopedic surgery (Dr. Matias) talked with the patient and the patient's , they decided against surgery, I called her earlier this evening and talk to her extensively on the phone and told her that this repair would consist of an intramedullary nail and described the procedure after discussion with his and the discussed this with the patient, patient's stated to go ahead with the repair of the hip fracture. I talked with anesthesia (Dr. Alatorre) and let him know that this will probably would be added on tomorrow and also talked with Dr. Matias. I think the patient is medically stable at this time, he has some elevation of his white blood cell count but I think it is due to to his dexamethasone administration. Objective Data Objective Data Vital Signs: Vital Signs Temp Pulse Resp BP Pulse Ox O2 Del Method 98.5 F 104 H 16 118/79 98 Room Air 11/16/22 16:06 11/16/22 16:06 11/16/22 16:06 11/16/22 16:06 11/16/22 16:06 11/16/22 16:06 Oxygen Delivery Method Room Air Weight: 69.5 kg Body Mass Index (BMI) 23.3 Intake & Output: Intake and Output for Last 24 Hours 11/14/22 11/15/22 11/16/22 23:59 23:59 23:59 Intake Total 1000 / 1000 790 / 790 Output Total 0 / 0 1000 / 1000 Balance 1000 / 1000 -210 / -210 Lab / Micro Data 11/16/22 04:52 11/16/22 04:52 Labs: Laboratory Results - last 24 hr 11/16/22 00:29: POC Glucose 151 H 11/16/22 04:52: WBC 15.9 H, RBC 3.53 L, Hgb 11.2 L, Hct 33.5 L, MCV 94.9 H, MCH 31.7, MCHC 33.4, RDW Std Deviation 52.7 H, RDW Coeff of Izaiah 15.7 H, Plt Count 204, MPV 10.1, Immature Gran % (Auto) 2.400 H, Neut % (Auto) 87.3 H, Lymph % (Auto) 5.2 L, [place] % (Auto) 4.8, Eos % (Auto) 0.0, Baso % (Auto) 0.3, Absolute Neuts (auto) 13.9 H, Absolute Lymphs (auto) 0.82 L, Nucleated RBC % 0, Sodium 135 L, Potassium 3.9, Chloride 102, Carbon Dioxide 25.0, Anion Gap 8, BUN 15, Creatinine 0.59 L, Estim Creat Clear Calc 58.90, Est GFR (MDRD) Af Amer 172, Est GFR (MDRD) Non-Af 142, BUN/Creatinine Ratio 25.6 H, Glucose 134 H, Calcium 8.3 L 11/16/22 05:24: Blood Type O POSITIVE, Antibody Screen NEGATIVE Radiography Diagnostic Testing: Radiology Impression Hip/Pelvis X-Ray 11/16/22 00:32 IMPRESSION: Acute intertrochanteric fracture of the right femur. Electronically Signed: Josue Ring MD at 2:51 EDT , Scapula X-Ray 11/16/22 00:32 IMPRESSION: No acute fracture identified. Electronically Signed: Josue Ring MD at 2:54 EDT , Shoulder X-Ray 11/16/22 00:32 IMPRESSION: No acute fracture or dislocation. Electronically Signed: Josue Ring MD at 2:56 EDT , Chest X-Ray 11/16/22 01:09 IMPRESSION: No acute pulmonary disease. Electronically Signed: Josue Ring MD at 2:19 EDT , Femur X-Ray 11/16/22 09:20 IMPRESSION: Intertrochanteric fracture of the right femur. Electronically Signed: Suly Crow MD at 11:19 EDT , Physical Exam Const alert, oriented x3, no apparent distress, average body habitus and healthy appearing General Appearance: cooperative, well kempt and well developed Orientation / Consciousness: awake, oriented to person, oriented to place and oriented to time HEENT normocephalic, head/scalp atraumatic and moist oral mucous membranes Eyes PERRL, EOMs intact bilaterally and conjunctivae normal Neck supple, no JVD, thyroid normal and no carotid bruits General: trachea midline Resp normal respiratory effort and clear to auscultation bilaterally Auscultation: Negative for rales, rhonchi or wheezes Cardio regular rate, regular rhythm, S1 normal heart sound, S2 normal heart sound, no murmurs, no rub and no gallops GI normal to inspection, nondistended, normoactive bowel sounds, soft to palpation, non-tender and non-distended Extremity Extremity Narrative: Patient is unable to move his right leg without pain in his right hip area Skin no rashes or lesions noted General Skin Exam: no breakdown Neuro oriented x3, CN's II-XII intact bilaterally, no focal motor deficits and no sensory deficits noted Sensorium / Orientation: awake, alert, oriented to person, oriented to place and oriented to time Speech: speech normal Psych affect normal Assessment & Plan Assessment/Plan (1) Decreased mobility: PLAN: Plan 1. Acute debility secondary to advanced small cell lung cancer, complicated by acute intertrochanteric fracture of the right hip from mechanical fall in the hospital-I had multiple discussions with the patient's this evening, she agrees that the surgery needs to be carried out she will talk with the patient and hopefully we can get this accomplished tomorrow. wants the patient to go home at the conclusion of his hospitalization rather than to go to a care facility and I agreed. I discussed this with orthopedic surgery and anesthesia today. #2 acute intertrochanteric fracture of the right hip-again, hopefully patient can undergo stabilization of the hip tomorrow with an intramedullary nail. #3 metastatic small cell carcinoma of the lung-again patient is consented to hospice care at discharge from the hospital at home. #4 elevated white blood cell count-secondary to administration of dexamethasone, monitor as needed #5 essential hypertension-continue the patient's blood pressure medications, he is on Maxide and lisinopril. Need to monitor, evaluate, assess, and treat. Total clinical time spent by myself addressing the patient's medical issues, reviewing all of his data, and collaborating with the patient's care team: 50 minutes Charges/Coding Visit Charges Inpatient E&M: 28548 [facility]osp L3
[2022-11-16 20:51] VITALS: BP 121/76; PULSE 87; RESP 16; TEMP 36.7; O2SAT 94
[2022-11-16] MEDS: Morphine 4 MG/ML Syringe IV (20:54)
[2022-11-17] VITALS (10 sets, daily range): BP systolic 108–165; BP diastolic 78–94; PULSE 70–89; RESP 14–18; TEMP 36.4–37.2; O2SAT 93–99; BMI 23.3
[2022-11-17 05:48] LABS: Absolute Lymphocyte Count 1.54 X10^3/uL (0.83-4.51); Basophil# 0.04 X10^3/uL; Basophil% 0.2 % (0-1); Hematocrit 29.9 % (40-54); Lymphocyte # 1.54 X10^3/ul (0.83-4.51); Lymphocyte % 8.6 % (19-41); Mean Corp Hgb Conc 33.4 g/dL (32-36); Mean Corpuscular Hgb 31.9 pg (27.0-32.0); Mean Corpuscular Volume 95.5 fL (80-94); Mean Platelet Vol. 9.8 fl (6.2-12.0); Monocyte# 1.85 X10^3/uL; Monocyte% 10.4 % (0-10); NRBC Flagged by Analyzer 0 % (0-5); Neutrophil # 14.03 X10^3/uL (2.7-7.7); Neutrophil % 78.8 % (47-70); POSITIVE DIFFERENTIAL YES; Platelet Count 242 K/mm3 (150-450); RBC Distribution Width CV 16.4 % (11.6-14.6); RBC Distribution Width SD 54.8 fl (35.1-43.9); Red Blood Count 3.13 M/mm3 (4.6-6.2); White Blood Count 17.8 K/mm3 (4.4-11.0)
[2022-11-17 05:51] LABS: Differential Indicated SCAN CRITERIA MET
[2022-11-17 06:11] LABS: Differential Comment SCANNED
[2022-11-17 06:39] LABS: Anion Gap 8 (5-15); BUN 27 mg/dL (7-18); BUN/Creat Ratio 37.7 RATIO (10-20); Calcium,Total 8.2 mg/dL (8.5-10.1); Chloride 101 mmol/L (98-107); Creatinine, Serum 0.72 mg/dL (0.70-1.30); EST Glomerular Filtration Rate 113 mL/min (>60); Est Glom Filt Rate - Afr Amer 137 mL/min (>60); Glucose 126 mg/dL (74-106); Potassium 3.8 mmol/L (3.5-5.1); Sodium Level 134 mmol/L (136-145)
[2022-11-17] MEDS: Lisinopril 20 MG Tablet PO (10:42)
[2022-11-17] MEDS: hydroCHLOROthiazide 12.5mg 12.5 MG PO (10:42)
[2022-11-17] MEDS: Pantoprazole Sodium 40 MG Tablet PO (10:42)
[2022-11-17] MEDS: Lactated Ringers 1,000 ML 15 ML IV (12:57)
--- NOTE | 2022-11-17 14:28 | CASEMGMT ---
Per physician patient and his would like patient to go home on Hospice. LAURA spoke with patient's Veronica. Introduced self and role at [facility]. SW confirmed they would like to talk with Hospice. Veronica would be okay with the local Hospice and wants to take patient home tomorrow. LAURA let Veronica know that someone from Hospice will be giving her a phone call to set up a meeting. LAURA spoke with Diamond at [facility] regarding referral. LAURA let Diamond know that patient and his would like patient to go home tomorrow. LAURA also e-mailed referral information. Rosie Patiño AGENCY DIRECTOR IMELDA
[2022-11-17] MEDS: Cefazolin 2 GM in 0.9% Normal Saline 100 ML IV ×2 (14:30→20:06)
--- NOTE | 2022-11-17 15:00 | RAD_ITS ---
EXAM: FL FLUOROSCOPY < 1 HOUR CLINICAL INDICATION: FX TECHNIQUE: Fluoroscopic images performed in multiple projections. A total of 5 fluoroscopically guided spot images were obtained. Fluoroscopic guidance was provided by a physician. A total of 24.4 seconds of fluoroscopy time was utilized. COMPARISON: No relevant prior studies available. FINDINGS: BONES/JOINTS: Final images demonstrate nail fixation of the right hip in good alignment. SOFT TISSUES: Unremarkable. RAD/Hip 1 view with Pelvis IMPRESSION: Nail fixation right hip in good alignment. Electronically Signed: Mihai Elise MD at 18:52 EDT ,
[2022-11-17] MEDS: Bupivacaine 0.25% 30 ML Vial (15:35)
[2022-11-17 15:36] LABS: Pathologist Review Reviewed
--- NOTE | 2022-11-17 15:38 | PCM.PN.HOSP ---
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 Patient appears stable for surgery at this time, he is due to have an intramedullary nathaly placed today to repair his hip fracture. I talked to the patient's today who was in the room at the time of my examination. Objective Data Objective Data Vital Signs: Vital Signs Temp Pulse Resp BP Pulse Ox O2 Del Method 98.7 F 80 16 108/78 95 Room Air 11/17/22 10:39 11/17/22 10:39 11/17/22 10:39 11/17/22 10:39 11/17/22 10:39 11/17/22 10:39 Oxygen Delivery Method Room Air Weight: 69.5 kg Body Mass Index (BMI) 23.3 Intake & Output: Intake and Output for Last 24 Hours 11/15/22 11/16/22 11/17/22 23:59 23:59 23:59 Intake Total 1000 / 1000 790 / 790 Output Total 0 / 0 1100 / 1100 350 / 350 Balance 1000 / 1000 -310 / -310 -320 / -320 Lab / Micro Data 11/17/22 04:44 11/17/22 04:44 Labs: Laboratory Results - last 24 hr 11/17/22 04:44: WBC 17.8 H, RBC 3.13 L, Hgb 10.0 L, Hct 29.9 L, MCV 95.5 H, MCH 31.9, MCHC 33.4, RDW Std Deviation 54.8 H, RDW Coeff of Izaiah 16.4 H, Plt Count 242, MPV 9.8, Immature Gran % (Auto) 2.000 H, Neut % (Auto) 78.8 H, Lymph % (Auto) 8.6 L, [place] % (Auto) 10.4 H, Eos % (Auto) 0.0, Baso % (Auto) 0.2, Absolute Neuts (auto) 14.0 H, Absolute Lymphs (auto) 1.54, Nucleated RBC % 0, Differential Comment SCANNED, Diff Path Review Reviewed, Sodium 134 L, Potassium 3.8, Chloride 101, Carbon Dioxide 25.0, Anion Gap 8, BUN 27 H, Creatinine 0.72, Estim Creat Clear Calc 58.90, Est GFR (MDRD) Af Amer 137, Est GFR (MDRD) Non-Af 113, BUN/Creatinine Ratio 37.7 H, Glucose 126 H, Calcium 8.2 L Physical Exam Narrative alert, oriented x3, no apparent distress, average body habitus and healthy appearing General Appearance: cooperative, well kempt and well developed Orientation / Consciousness: awake, oriented to person, oriented to place and oriented to time HEENT normocephalic, head/scalp atraumatic and moist oral mucous membranes Eyes PERRL, EOMs intact bilaterally and conjunctivae normal Neck supple, no JVD, thyroid normal and no carotid bruits General: trachea midline Resp normal respiratory effort and clear to auscultation bilaterally Auscultation: Negative for rales, rhonchi or wheezes Cardio regular rate, regular rhythm, S1 normal heart sound, S2 normal heart sound, no murmurs, no rub and no gallops GI normal to inspection, nondistended, normoactive bowel sounds, soft to palpation, non-tender and non-distended Extremity Extremity Narrative: Patient is unable to move his right leg without pain in his right hip area Skin no rashes or lesions noted General Skin Exam: no breakdown Neuro oriented x3, CN's II-XII intact bilaterally, no focal motor deficits and no sensory deficits noted Sensorium / Orientation: awake, alert, oriented to person, oriented to place and oriented to time Speech: speech normal Psych affect normal Assessment & Plan Assessment/Plan (1) Intertrochanteric fracture of right hip: QUALIFIERS: Encounter type: initial encounter Fracture type: closed Fracture alignment: nondisplaced Qualified Code(s): S72.144A - Nondisplaced intertrochanteric fracture of right femur, initial encounter for closed fracture (2) Decreased mobility: PLAN: Plan 1. Acute debility secondary to advanced small cell lung cancer, complicated by acute intertrochanteric fracture of the right hip from mechanical fall in the hospital-patient will go for an intramedullary nathaly placement today, he appears medically stable #2 acute intertrochanteric fracture of the right hip-patient will go for an intramedullary nathaly placement today #3 metastatic small cell carcinoma of the lung-again patient has consented to hospice care at discharge from the hospital at home. #4 elevated white blood cell count-secondary to administration of dexamethasone, monitor as needed #5 essential hypertension-continue the patient's blood pressure medications, he is on Maxide and lisinopril. Need to monitor, evaluate, assess, and treat. Total clinical time spent by myself addressing the patient's medical issues, reviewing all of his data, and collaborating with the patient's care team: 35 minutes Charges/Coding Visit Charges Inpatient E&M: 60243 Subs Hosp L2
--- NOTE | 2022-11-17 15:52 | PCM.OP.BLANK ---
Operative Report Date of Procedure: 11/17/22 Preoperative diagnosis: Right hip intertrochanteric femur fracture Postoperative diagnosis: Same Procedure: Cephalo-medullary fixation right hip Implants: Synthes short nail 130 deg 12 mm diameter 105 mm helical blade 36 mm screw Anesthesia: General EBL: 20 Complications: None Condition: Stable to PACU Indication for procedure: 77-year-old male had a ground-level fall in the hospital he has metastatic brain cancer and is on hospice he sustained a nondisplaced intertrochanteric fracture of his right hip thorough discussion was had with the patient and his family in regards to operative versus nonoperative intervention risk benefits and alternatives were reviewed including risk of bleeding infection nerve, artery, bone, tissue damage, blood clot need for further surgery and continued pain. For the purposes of pain control transferring and mobility they elected to proceed with surgery. Procedure: Patient met in the preoperative holding area once again the operative extremity was identified by both patient and physician and was marked. Patient was met by anesthesia and IV was started . patient was brought back to the to the operating room anesthesia was started. Patient was then positioned on the fracture table all bony prominences were well-padded. patient was then positioned with abduction internal rotation and traction and fluoroscopy was brought in to ensure that an adequate reduction could be performed. Patient was then prepped and draped in usual sterile fashion and timeout was called to ensure the proper patient procedure and extremity were being contemplated. Fluoroscopy was used to myra the tip of the greater trochanter and a 3 fingerbreadth incision was made 2 finger breaths proximal to the tip of the greater trochanter. Was carried carried down through the skin and subcutaneous tissue as well as the gluteal fascia. Guidepin was then inserted through the tip of the greater trochanter directed towards the level of lesser trochanter this was checked in both AP and lateral projections. An opening reamer was performed. Following this was the insertion of the nail the appropriate height jig was used and a triple trocar sleeve was advanced to the skin and a stab incision was made at the trocar was inserted to the level of the bone and a guidepin was placed into the femoral neck and head checked on both AP and lateral projections. This was then measured and appropriately sized helical blade was inserted the nail was locked proximally the fracture was compressed and a locking screw was placed distally the same incision was extended slightly distally to allow the insertion of the trocar for the transverse screw. This was then drilled and measured under fluoroscopy and the appropriate size screw was inserted. Final AP and lateral projections were saved to the PACS system of the entire construct the wounds were thoroughly irrigated the fascia was closed with #1 [id number] Vicryls followed by 2-0 Vicryl in the subcutaneous tissues followed by melissa in the skin. 0.5% Marcaine with epinephrine was injected into the subcutaneous tissues dressing was applied form of Xeroform 4 x 4 ABD and Ioban tape. Patient tolerated procedure well there is no intraoperative complications and was brought back to the PACU in stable condition.
--- NOTE | 2022-11-17 16:34 | CASEMGMT ---
Kierra from Hospice is at [facility] to meet with patient's . Rosie SEGURA
[2022-11-17] MEDS: oxyCODONE 5 MG Tablet 10 MG PO (17:23)
[2022-11-17] MEDS: Ondansetron 4 MG/2 ML Vial IV (17:23)
[2022-11-17] MEDS: Lactated Ringers 1,000 ML 125 ML IV (17:31)
[2022-11-17] MEDS: Acetaminophen 325 MG Tablet 650 MG PO (20:01)
--- NOTE | 2022-11-17 21:30 | NURSING ---
Discussed getting pt up to ambulate with patients . Pt's states she does not want staff to get him up until the morning. States it is late and she just wants him to be able to rest tonight. Informed patient and of the reasons behind getting up the first post op day but they state they still want to wait until morning
[2022-11-17] MEDS: Zolpidem Tartrate 5 MG Tablet PO (22:44)
[2022-11-18 01:20] VITALS: BP 153/89; PULSE 82; RESP 16; TEMP 37; O2SAT 96
--- NOTE | 2022-11-18 01:31 | NURSING ---
Pt has been pulling off tele multiple times tonight. was reading sinus rhythm on the monitor. Sent message to physician to evaluate if can be be non-tele. Order to dc tele received.
[2022-11-18] MEDS: oxyCODONE 5 MG Tablet 10 MG PO (01:47)
--- NOTE | 2022-11-18 02:10 | NURSING ---
pt states he feels like he is unable to urinate. bladder scanned for 533 ml at this time. straight cathedfor 600ml d/t inability to urinate.
[2022-11-18] MEDS: Cefazolin 2 GM in 0.9% Normal Saline 100 ML IV ×2 (03:15→11:44)
[2022-11-18 03:22] VITALS: O2SAT 88; O2SAT 95
[2022-11-18 05:20] VITALS: BP 156/81; PULSE 91; RESP 18; TEMP 37.1; O2SAT 100
[2022-11-18] MEDS: Acetaminophen 325 MG Tablet 650 MG PO (06:56)
[2022-11-18 07:31] VITALS: O2SAT 96
--- NOTE | 2022-11-18 08:52 | CASEMGMT ---
Social Work Power of wire stitcher machine [facility] power of wire stitcher machine. KIRSTEN Hairston
[2022-11-18 09:34] VITALS: BP 112/75; PULSE 92; RESP 18; TEMP 36.1; O2SAT 96
[2022-11-18] MEDS: Lisinopril 20 MG Tablet PO (09:36)
[2022-11-18] MEDS: Calcium (Elemental) 500 MG Tablet PO (09:36)
[2022-11-18] MEDS: Aspirin E.C. 81 MG Tablet PO (09:36)
[2022-11-18] MEDS: Pantoprazole Sodium 40 MG Tablet PO (09:36)
[2022-11-18] MEDS: dexAMETHasone 4 MG Tablet PO (09:36)
[2022-11-18] MEDS: hydroCHLOROthiazide 12.5mg 12.5 MG PO (09:36)
[2022-11-18] MEDS: APIXABAN 2.5 MG TABLET (WCH) PO (09:37)
--- NOTE | 2022-11-18 09:55 | PCM.PN.ORT ---
Objective Data Objective Data Vital Signs: Vital Signs Temp Pulse Resp BP Pulse Ox O2 Del Method O2 Flow Rate 97.0 F L 92 18 112/75 96 Room Air 2 11/18/22 09:34 11/18/22 09:34 11/18/22 09:34 11/18/22 09:34 11/18/22 09:34 11/18/22 09:34 11/18/22 05:20 Oxygen Flow Rate (L/min) 2 Oxygen Delivery Method Room Air Weight: 153 lb 3.54 oz Body Mass Index (BMI) 23.3 Intake & Output: Intake and Output for Last 24 Hours 11/16/22 11/17/22 11/18/22 23:59 23:59 23:59 Intake Total 790 / 790 428 / 548 1350 / 1350 Output Total 1100 / 1100 350 / 650 900 / 900 Balance -310 / -310 78 / -102 450 / 450 Lab / Micro Data 11/17/22 04:44 11/17/22 04:44 Labs: Laboratory Results - last 24 hr 11/17/22 04:44: Diff Path Review Reviewed Radiography Diagnostic Testing: Radiology Impression Hip/Pelvis X-Ray 11/17/22 15:00 IMPRESSION: Nail fixation right hip in good alignment. Electronically Signed: Mihai Elise MD at 18:52 EDT , Assessment & Plan Assessment/Plan (1) Intertrochanteric fracture of right hip: QUALIFIERS: Encounter type: initial encounter Fracture type: closed Fracture alignment: nondisplaced Qualified Code(s): S72.144A - Nondisplaced intertrochanteric fracture of right femur, initial encounter for closed fracture PLAN: Plan Postop day #1 right trochanteric femoral nail PT OT weightbearing as tolerated Pain control oxycodone Tylenol Eliquis 2.5 mg twice daily for 4 weeks Patient may follow-up in the office in 2 weeks for wound check staple removal or if more convenient for family and patient considering hospice situation please have melissa removed 17 days postop and call with any concerns.
--- NOTE | 2022-11-18 10:08 | CASEMGMT ---
LAURA called Diamond at Hospice and patient's signed Hospice papers. Hospice ordered equipment for the home yesterday and it should be delivered this am. SW will check with patient's to make sure all equipment is delivered. Plan: d/c home with [facility]. Rosie SEGURA
--- NOTE | 2022-11-18 14:09 | CASEMGMT ---
LAURA called patient's Veronica and no equipment has been delivered to their home yet. LAURA let Veronica know that patient will not be able to get in and out of a car so transport will be arranged via squad. Veronica verbalized understanding. LAURA gave Veronica SW's phone number and she will call LAURA when equipment is delivered. Rosie Patiño SQUIRREL WORKER IMELDA
[2022-11-18 15:03] VITALS: BP 125/50; PULSE 93; RESP 18; TEMP 36.6; O2SAT 96
--- NOTE | 2022-11-18 16:05 | CASEMGMT ---
LAURA spoke with Diamond at Hospice and the equipment was delivered to the patient's home. Diamond is checking with their transport on pickle processor. LAURA let Diamond know if LAURA arranged transport patient would likely not get picked up until after 7p tonight due to numerous [facility] discharges. Awaiting response from Diamond on transport. Hospice will pickle processor patient between 430 and 5p. LAURA notified physician and RN. Plan: d/c home on [facility]. Hospice's mobile unit will transport patient. Rosie SEGURA
--- NOTE | 2022-11-18 16:05 | PCM.DC ---
Discharge Instructions Diet Discharge Diet: No restrictions Activity Discharge Activity: Use Walker Weight Bearing Status: Weight bearing as tolerated Follow Up Care Test Results: Test results from this visit will be discussed in further detail at your follow-up appointment, if applicable. Discharge Plan Admission Admit Date/Time: 11/16/22 08:36 Primary Reason for Your Visit: weakness, hip fracture Attending Provider: Aj Torres Primary Care Provider: Prema Banks NP Consulting Providers: Adria Matias; Adria Hussein; Adria Willams Discharge Orders/Prescriptions Prescriptions: New Eliquis 5 mg Tablet 2.5 mg PO BID Qty: 0 0RF Continued aspirin [Adult Aspirin Regimen] 81 mg tablet,delayed release (DR/EC) 81 mg PO DAILY cholecalciferol (vitamin D3) [Vitamin D3] 10 mcg (400 unit) tablet 10 mcg PO DAILY calcium carbonate [Calcium 600] 600 mg calcium (1,500 mg) tablet 800 mg PO DAILY ondansetron 8 mg tablet,disintegrating 8 mg PO Q8H PRN (Reason: nausea and vomiting) Qty: 30 2RF omeprazole 20 mg capsule,delayed release(DR/EC) 20 mg PO DAILY Rx Instructions: take while on Dexamethasone (DME) Disabled Parking Placard See Rx Instructions .Route .MEDSUPPLY Qty: 1 0RF Rx Instructions: Life long dexamethasone 4 mg tablet 8 mg PO .COMPLEX Qty: 4 3RF Rx Instructions: 8 mg orally on days 2 and 3 of chemotherapy cycle ONLY zolpidem 10 mg tablet 10 mg PO .every night Qty: 30 5RF lisinopril-hydrochlorothiazide 20-12.5 mg tablet 1 tab PO DAILY Qty: 90 3RF pantoprazole [Protonix] 40 mg tablet,delayed release (DR/EC) 40 mg PO DAILY Rx Instructions: take two times a day for eight weeks then start once a day. magnesium 250 mg tablet 500 mg PO DAILY dexamethasone 4 mg tablet 4 mg PO DAILY Qty: 1 0RF (DME) Wheeled walker See Rx Instructions .Route .MEDSUPPLY Qty: 1 0RF Rx Instructions: As directed Referrals / Follow Up: Prema Banks NP, NURSE DISCHARGE-C [Primary Care Provider] - Disposition Disposition (needs filled in before D/C Order can be placed): Hospice in Home
--- NOTE | 2022-11-18 16:15 | DS.PCM_ITS ---
Providers Date of Admission: 11/16/22 Date of Discharge: 11/18/22 Primary Care Physician: MARLENY Diaz Consultations 11/15/22 20:23 Consult: Oncology/Hematology Routine Consulting Provider: Adria Hussein Reason for Consult: Metastatic cancer EMERGENT Consult: No Notified: Yes Date Notified: 11/15/22 Time Notified: 19:44 Method of Notification: ED Physician Initiated 11/16/22 03:59 Consult: Orthopedics Routine Consulting Provider: Adria Matias Reason for Consult: Acute intertrochanteric fracture of the right femur EMERGENT Consult: No Notified: Yes Date Notified: 11/16/22 Time Notified: 03:59 Method of Notification: Verbal Reason For Visit: WORSENING METASTATIC CANCER Diagnosis Discharge Diagnosis (1) Intertrochanteric fracture of right hip: Status: Acute Code(s): S72.141A - Displaced intertrochanteric fracture of right femur, initial encounter for closed fracture Qualifiers: Encounter type: initial encounter Fracture alignment: nondisplaced Fracture type: closed Qualified Code(s): S72.144A - Nondisplaced intertrochanteric fracture of right femur, initial encounter for closed fracture Plan 1. 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 #4 elevated white blood cell count-secondary to administration of dexamethasone, monitor as needed #5 essential hypertension-continue the patient's blood pressure medications, he is on Maxide and lisinopril. Need to monitor, evaluate, assess, and treat. Total clinical time spent by myself addressing the patient's medical issues, reviewing all of his data, and collaborating with the patient's care team: 35 minutes Medications at Discharge Home Medications aspirin 81 mg tablet,delayed release (Adult Aspirin Regimen) 81 mg PO DAILY 12/29/21 cholecalciferol (vitamin D3) 10 mcg (400 unit) tablet (Vitamin D3) 10 mcg PO DAILY 01/24/22 calcium carbonate 600 mg calcium (1,500 mg) tablet (Calcium) 800 mg PO DAILY 01/26/22 ondansetron 8 mg disintegrating tablet 8 mg PO Q8H PRN nausea and vomiting #30 tabs 01/27/22 omeprazole 20 mg capsule,delayed release 20 mg PO DAILY 10/05/22 Disabled Parking Placard #1 ea 10/06/22 Wheeled walker #1 ea 10/06/22 lisinopril 20 mg-hydrochlorothiazide 12.5 mg tablet 1 tab PO DAILY blood pressure #90 tabs 10/07/22 zolpidem 10 mg tablet 10 mg PO .every night #30 tabs 10/07/22 dexamethasone 4 mg tablet 8 mg (2 x 4 mg) PO .COMPLEX #4 tabs 10/27/22 pantoprazole 40 mg tablet,delayed release (Protonix) 40 mg PO DAILY PPI 11/15/22 magnesium 250 mg tablet 500 mg PO DAILY low magnesium 11/16/22 apixaban 5 mg tablet (Eliquis) 2.5 mg (1/2 x 5 mg) PO BID #0 tabs 11/18/22 dexamethasone 4 mg tablet 4 mg PO DAILY #1 TAB 11/18/22 Hospital Course Operations - (Intramedullary nail insertion into the right femur for repair of right intertrochanteric fracture) Procedures None Summary of Care Provided Minutes Spent on Discharge: 32 Hospital Course: This 77-year-old white male was seen in the emergency room at [facility] with complaints of generalized weakness and unsteadiness at home, he has a long history of small cell lung cancer which had metastasized to his liver and brain. Patient was initially admitted to PCU evaluation and treatment by PT and OT. Shortly after admission to the floor, patient had a mechanical fall at ground level in the hospital and sustained a fracture of his right intertrochanteric region. He was seen in consultation by orthopedic surgery who felt that even though the patient had terminal lung cancer with metastases, that for comfort reasons and ease of care he should undergo repair of the right hip fracture. Patient's initially declined to have him undergo surgery but when conversations were subsequently carried out with her and the patient as to the need to perform the surgery for comfort measures and ease of mobility, the patient and the patient's consented to let the patient undergo surgery. Patient underwent an intramedullary nailing of the right hip fracture, he did well after surgery, he was seen in consultation by hospice who will follow up with the patient at home. On 11/19/2022, patient was seen and examined: On examination he appeared in good health and spirits. Vital signs as documented. Skin warm and dry and without overt rashes. Neck without JVD, neck was supple, trachea midline, thyroid was normal. Lungs clear bilaterally, normal air movement was noted. Heart exam notable for regular rhythm, normal sounds and absence of murmurs, rubs or gallops. Abdomen unremarkable and without evidence of organomegaly, masses, or abdominal aortic enlargement. Bowel sounds are present, abdomen is not distended. Extremities nonedematous, no cyanosis was noted, no clubbing was noted. Neuro: Cranial nerves II through XII are grossly intact, no focal motor deficits were noted, sensation to light touch and pinprick intact, motor exam 5/5 throughout. Psych: Patient is alert and oriented x3, he does not appear anxious or depressed, he does not appear agitated. Patient appears stable for discharge home on 11/19/2022, again hospice will follow-up with the patient at his home. I talked with his oncologist concerning his medical care and course. Weight / BMI Weight Weight: 69.5 kg Body Mass Index (BMI) 23.3 ABG / Lab / Microbiology Data 11/17/22 04:44 11/17/22 04:44 Radiography Diagnostic Testing: Radiology Impression Hip/Pelvis X-Ray 11/17/22 15:00 IMPRESSION: Nail fixation right hip in good alignment. Electronically Signed: Mihai Elise MD at 18:52 EDT , D/C Instructions Discharge Diet: No restrictions Weight Bearing Status: Weight bearing as tolerated Meaningful Use Info Meaningful Use Diagnoses (Choose all that apply): None applicable Discharge Plan Admission Admit Date/Time: 11/16/22 08:36 Primary Reason for Your Visit: weakness, hip fracture Attending Provider: Aj Torres Primary Care Provider: Prema Banks NP Consulting Providers: Adria Matias; Adria Hussein; Adria Willams Discharge Orders/Prescriptions Prescriptions: New Eliquis 5 mg Tablet 2.5 mg PO BID Qty: 0 0RF Continued aspirin [Adult Aspirin Regimen] 81 mg tablet,delayed release (DR/EC) 81 mg PO DAILY cholecalciferol (vitamin D3) [Vitamin D3] 10 mcg (400 unit) tablet 10 mcg PO DAILY calcium carbonate [Calcium 600] 600 mg calcium (1,500 mg) tablet 800 mg PO DAILY ondansetron 8 mg tablet,disintegrating 8 mg PO Q8H PRN (Reason: nausea and vomiting) Qty: 30 2RF omeprazole 20 mg capsule,delayed release(DR/EC) 20 mg PO DAILY Rx Instructions: take while on Dexamethasone (DME) Disabled Parking Placard See Rx Instructions .Route .MEDSUPPLY Qty: 1 0RF Rx Instructions: Life long dexamethasone 4 mg tablet 8 mg PO .COMPLEX Qty: 4 3RF Rx Instructions: 8 mg orally on days 2 and 3 of chemotherapy cycle ONLY zolpidem 10 mg tablet 10 mg PO .every night Qty: 30 5RF lisinopril-hydrochlorothiazide 20-12.5 mg tablet 1 tab PO DAILY Qty: 90 3RF pantoprazole [Protonix] 40 mg tablet,delayed release (DR/EC) 40 mg PO DAILY Rx Instructions: take two times a day for eight weeks then start once a day. magnesium 250 mg tablet 500 mg PO DAILY dexamethasone 4 mg tablet 4 mg PO DAILY Qty: 1 0RF (DME) Wheeled walker See Rx Instructions .Route .MEDSUPPLY Qty: 1 0RF Rx Instructions: As directed Referrals / Follow Up: Prema Banks NP, PIN TICKET MACHINE OPERATOR-C [Primary Care Provider] - Disposition Disposition (needs filled in before D/C Order can be placed): Hospice in Home Charges/Coding Visit Charges Inpatient E&M: 41242 Disch Hosp >30min
== END 2022-11-18 17:18 | disposition hospice, home (50) | DRG 480 ==
LOC: ED 19:38 → PCU 19:50
PROVIDERS: Emergency Medicine; Orthopaedic Surgery; Admitting Provider Hospitalist; Emergency Provider Emergency Medicine; PCP Nurse Practitioner; Visit Provider Internal Medicine
PROC: 0QS636Z Reposition Right Upper Femur with Intramedullary Internal Fixation Device, Percutaneous Approach (ICD-10-PCS; principal; 2022-11-17 13:15)
DX: S72.144A Nondisplaced intertrochanteric fracture of right femur, initial encounter for closed fracture (principal); G93.6 Cerebral edema; C78.7 Secondary malignant neoplasm of liver and intrahepatic bile duct; C34.90 Malignant neoplasm of unspecified part of unspecified bronchus or lung; C79.31 Secondary malignant neoplasm of brain; I10 Essential (primary) hypertension; H53.47 Heteronymous bilateral field defects; H53.461 Homonymous bilateral field defects, right side; W19.XXXA Unspecified fall, initial encounter; G47.00 Insomnia, unspecified; Z87.891 Personal history of nicotine dependence; Z79.82 Long term (current) use of aspirin; Z51.5 Encounter for palliative care; Z92.3 Personal history of irradiation; R29.6 Repeated falls
CPT/HCPCS: 36415; 70553; 71045; 73010; 73030; 73501; 73502; 73552; 76000; 80048; 82962; 85025; 86850; 86900; 86901; 93005; 97162; 97166; 97802; 99285; A9575; C1713; J7030; J7120; J2405